=== PATIENT | female | born 1935 | race Caucasian/White ===

== ENCOUNTER 2016-08-30 11:35 | Inpatient (IN) | payer MEDICARE, OTHER ==
--- NOTE | 2016-08-30 11:43 | EDM.PDOC ---
ED HPI SEIZURE COMPLAINT - General Source of Information: Reports: Patient, EMS History Limitations: Reports: No limitations - History of Present Illness Timing/Duration: Reports: seconds: Event Occurred (Where): home Event (Witnessed/Unwitnessed): witnessed Location: Reports: other (no trauma) Quality: Reports: other (breath episode of unconsciousness) Severity: mild Context: Denies: recent ETOH, new/change in medications, missed med dose(s), illness, trauma, photo stimulation, activity/exercise Pre Event Symptom(s): Reports: no other symptoms Event Symptoms: Denies: incontinence, tongue biting, confusion, headaches, weakness, chest pain, cough, fever/chills, loss of appetite, malaise, nausea/ vomiting, shortness of breath Post Event Symptoms: Denies: confused, lethargic, headache, altered speech Associated Injuries: Reports: other (None stated) <Clay Ortega - Last Filed: 08/30/16 15:32> - General Source of Information: Reports: Patient, EMS History Limitations: Reports: No limitations <Jim Reardon - Last Filed: 08/30/16 19:25> - General Chief Complaint: Syncope Stated Complaint: [facility] Time Seen by Provider: 08/30/16 11:38 - History of Present Illness INITIAL COMMENTS - FREE TEXT/NARRATIVE: Patient is a 81-year-old female resident of [facility] who presents to the E.D. complaining of syncopal episode. Patient states she walked to the bathroom and once arriving to the toilet she became dizzy. Patient apparently passed out for a short period of time. She did not fall was sat back on the toilet to which her bearing came back quickly. She complained of only mild discomfort to her abdomen described as a crampy sensation. Consistent with needing to have a BM.Patient states she has issues with constipation. Per nursing staff patient alert and oriented upon arrival with questionable central cyanosis. Patient was placed on supplemental o2 via nc. Monitor revealed irregular/irregular rhythm with rate ranging in the 90-120's. Patient denies hitting her head, headache, dizziness, n/v, chest pain, shortness of breath, cough, fever/chills, recent weightgain, increased edema to legs, pain with urination, or any additional complaints. Patient has no complaints with admission to the E.D. She denies any history of TIA/Stroke. She did not fall or hit her head. Mouth is chronically dry. (Clay Ortega) 81-year-old female brought to the ED by [facility]. (Jim Reardon) - Related Data Allergies/ADRs: Allergies Allergy/AdvReac Type Severity Reaction Status Date / Time amiodarone Allergy Severe Anaphylactic Verified 08/30/16 11:37 Shock Penicillins Allergy Severe Hives Verified 08/30/16 11:37 Cephalosporins Allergy Cannot Verified 08/30/16 11:37 Remember Huxhycz-Usg-Ean Reductase Allergy Other Verified 08/30/16 11:37 Inhibitor Home Meds: Home Meds Cyclobenzaprine [Flexeril] 10 mg PO TID PRN 10/20/13 [History] Diltiazem [Cardizem CD] 240 mg PO DAILY 10/20/13 [History] Furosemide [Lasix] 40 mg PO DAILY 10/20/13 [History] Lisinopril [Zestril] 5 mg PO DAILY 10/20/13 [History] Metoprolol Succinate 50 mg PO DAILY 10/20/13 [History] Omeprazole [Prilosec] 20 mg PO DAILY PRN 10/20/13 [History] Potassium Chloride 20 meq PO BID 10/20/13 [History] Multivitamin [Multivitamins] 1 each PO DAILY 12/21/13 [History] Acetaminophen [Tylenol Extra Strength] 1,000 mg PO Q6HR PRN 12/28/14 [History] Levothyroxine [Synthroid] 100 mcg PO DAILY 06/20/15 [History] Warfarin Sodium [Jantoven] 4 mg PO SUTUTHSA 06/20/15 [History] Albuterol/Ipratropium [DuoNeb 3.0-0.5 MG/3 ML] 3 ml NEB ASDIRECTED PRN 08/02/16 [History] Atropine 1% [Isopto Atropine 1% Ophth Soln] 1 drop EYEBOTH DAILY PRN 08/02/16 [ History] Insulin Glarg,Human.Rec.Analog [Lantus Solostar] 28 units SUBCUT DAILY 08/02/16 [History] Insulin Lispro [Humalog Kwikpen U-100] 6 units SUBCUT BID 08/02/16 [History] Acetaminophen [Tylenol Extra Strength] 1,000 mg PO BID 08/30/16 [History] Albuterol [Proventil Neb Soln] 2.5 mg NEB Q6HRRT 08/30/16 [History] Cyanocobalamin (Vitamin B-12) [B-12] 5,000 mcg PO DAILY 08/30/16 [History] Docusate Sodium/Sennosides [Senna Plus] 2 tab PO DAILY 08/30/16 [History] Insulin Lispro [Humalog Kwikpen U-100] 4 units SQ DAILY 08/30/16 [History] Turmeric Root Extract [Turmeric] 500 mg PO DAILY 08/30/16 [History] Ubidecarenone [Co Q-10] 100 mg PO DAILY 08/30/16 [History] Warfarin [Coumadin] 2 mg PO MOWEFR 08/30/16 [History] Past Medical History HEENT History: Reports: Impaired vision, Other (see below) Other HEENT History: Wears correctivelenses, not with her. 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: Musculoskeletal History: Reports: Arthritis, Back pain, chronic Psychiatric History: Reports: Depression Endocrine/Metabolic History: Reports: Diabetes, type II, Obesity/BMI 30+ Hematologic History: Reports: Anticoagulation therapy - Infectious Disease History Infectious Disease History: Reports: Chicken pox, Measles, Pertussis (whooping cough) - Past Surgical History GI Surgical History: Reports: Cholecystectomy Dermatological Surgical History: Reports: None <Jim Reardon - Last Filed: 08/30/16 19:25> Social & Family History - Family History Family Medical History: Noncontributory OBGYN: Reports: Endocrine/Metabolic: Reports: Diabetes, type II Oncologic: Reports: Colon - Tobacco Use Smoking Status *Q: Never Smoker Used Tobacco, but Quit: No Second Hand Smoke Exposure: Yes - Caffeine Use Caffeine Use: Reports: None - Alcohol Use Days Per Week of Alcohol Use: 0 - Recreational Drug Use Recreational Drug Use: No - Living Situation & Occupation Living situation: Reports: single, alone (In her own home.) Occupation: retired <Jim Reardon - Last Filed: 08/30/16 19:25> ED ROS GENERAL - Review of Systems Review Of Systems: See Below Constitutional: Denies: fever, chills, malaise, weakness, decreased appetite HEENT: Denies: Vision change Respiratory: Denies: Shortness of Breath, Cough, Sputum Cardiovascular: Denies: Chest pain, Blood pressure problem, Dyspnea on exertion , Lightheadedness, Orthopnea, Palpitations, PND, Syncope GI/Abdominal: Reports: Abdominal pain (cramping), Constipation. Denies: Diarrhea, Flatus, Nausea, Vomiting : Denies: dysuria, flank pain, frequency, hematuria, urgency Musculoskeletal: Reports: back pain (mid thoracic, chronic, no new changes). Denies: neck pain, shoulder pain, arm pain Skin: Reports: no symptoms Neurological: Reports: Syncope, Difficulty Walking (utilizes walker,no changes) . Denies: Confusion, Dizziness, Headache, Numbness, Paresthesia, Pre-Existing Deficit, Seizure, Tingling, Trouble Speaking, Weakness, Gait Disturbance <Clay Ortega O - Last Filed: 08/30/16 15:32> - Physical Exam Exam: See Below Exam Limited By: No limitations General Appearance: alert, WD/WN, no apparent distress Eye Exam: bilateral eye: EOMI, PERRL Ears: hearing grossly normal Throat/Mouth: Normal inspection, Normal voice, No airway compromise, Other (dry oral mucosa) Head Exam: atraumatic, normocephalic Neck: normal inspection, supple, non-tender, full range of motion. No: lymphadenopathy (L), lymphadenopathy (R) Respiratory/Chest: no respiratory distress, lungs clear, normal breath sounds, no accessory muscle use, chest non-tender Cardiovascular: normal peripheral pulses, no edema, systolic murmur (3/6 right upper sternal border. ), irregularly irregular GI/Abdominal: normal bowel sounds, soft, no organomegaly, no distention, tender (mild tenderness to the lower abdomen, crampy, feels as if she needs to deficate ), other (Lab band button to the upper abdomen. ) Neuro Exam (Abbreviated): alert, oriented, CN II-XII intact, normal cognition, no motor/sensory deficits, other (Rhomberg in tact. No weakness to upper/lower extremities noted. no slurred speech. No facial droop. no pronator drift. ) Back Exam: normal inspection. No: CVA tenderness (L), CVA tenderness (R) Extremities: normal inspection, non-tender, no pedal edema, normal capillary refill Psychiatric: normal affect, normal mood Skin Exam: Warm, Dry, Intact, Normal color <Clay Ortega O - Last Filed: 08/30/16 15:32> Course <Clay Ortega O - Last Filed: 08/30/16 15:32> <Jim Reardon - Last Filed: 08/30/16 19:25> - Vital Signs Last Recorded V/S: Last Vital Signs Temp 36.3 C 08/30/16 16:51 Pulse 65 08/30/16 16:51 Resp 18 08/30/16 16:51 BP 113/72 08/30/16 16:51 Pulse Ox 95 08/30/16 16:51 Orthostatic Blood Pressure [ 100/55 Standing] Orthostatic Blood Pressure [ 114/82 Sitting] Orthostatic Blood Pressure [ 116/82 Supine] (Clay Ortega) - Orders/Labs/Meds Orders: Active Orders 24 hr Category Date Time Status EKG Documentation Completion [RC] STAT Care 08/30/16 11:38 Inactive Orthostatic Vital Signs [RC] ASDIRECTED Care 08/30/16 11:40 Active Sodium Chloride 0.9% [Normal Saline] 1,000 ml Med 08/30/16 11:45 Active IV ASDIRECTED Medication Orders Acetaminophen (Tylenol) 650 mg PO Q4H PRN PRN Reason: Pain (Mild 1-3)/fever Acetaminophen (Tylenol) 975 mg PO BID CELESTINO Acetaminophen/Hydrocodone Bitart ([place] 325-5 Mg) 1 tab PO Q4H PRN PRN Reason: Pain (moderate 4-6) Albuterol/Ipratropium (Duoneb 3.0-0.5 Mg/3 Ml) 3 ml NEB Q4H PRN PRN Reason: Shortness Of Breath/wheezing Atropine Sulfate (Isopto Atropine 1% Ophth Soln) 0 ml EYEBOTH DAILY PRN PRN Reason: Dryness Bisacodyl (Dulcolax) 5 mg PO DAILY PRN PRN Reason: Constipation Cyanocobalamin (Vitamin B12) 5,000 mcg PO DAILY CELESTINO Diltiazem HCl (Dilacor Xr) 240 mg PO DAILY CELESTINO Furosemide (Lasix) 40 mg PO DAILY CELESTINO Hydromorphone HCl (Dilaudid) 0.25 mg IVPUSH Q2H PRN PRN Reason: Pain (severe 7-10) Sodium Chloride (Normal Saline) 1,000 mls @ 150 mls/hr IV ASDIRECTED [facility] Last Admin: 08/30/16 12:26 Dose: 150 mls/hr Promethazine HCl 12.5 mg/ (Sodium Chloride) 50.5 mls @ 100 mls/hr IV Q6H PRN PRN Reason: Nausea/Vomiting Insulin Aspart (Novolog) 4 unit SUBCUT DAILY@1830 [facility] Last Admin: 08/30/16 19:08 Dose: 4 units Insulin Aspart (Novolog) 6 unit SUBCUT BID [facility] Insulin Detemir (Levemir) 14 unit SUBCUT BID [facility] Levothyroxine Sodium (Synthroid) 100 mcg PO WITHBREAKFAST [facility] Lisinopril (Prinivil) 5 mg PO DAILY [facility] Lorazepam (Ativan) 0.5 mg IV Q6H PRN PRN Reason: Anxiety Metoprolol Succinate (Toprol Xl) 50 mg PO DAILY [facility] Multivitamins (Thera) 1 each PO DAILY [facility] Ondansetron HCl (Zofran) 4 mg IV Q6H PRN PRN Reason: Nausea/Vomiting Pantoprazole Sodium (Protonix) 40 mg PO DAILY PRN PRN Reason: Indigestion Turmeric Root Extract [Turmeric] 500 Mg 0 each PO DAILY [facility] Ubidecarenone 100 Mg 0 each PO DAILY [facility] Polyethylene Glycol (Miralax) 17 gm PO DAILY PRN PRN Reason: Constipation Potassium Chloride (Klor-Con M20) 20 meq PO BID [facility] Senna/Docusate Sodium (Senna Plus) 1 tab PO BID PRN PRN Reason: Constipation Senna/Docusate Sodium (Senna Plus) 2 tab PO DAILY [facility] Temazepam (Restoril) 7.5 mg PO BEDTIME PRN PRN Reason: Sleep Warfarin Sodium (Coumadin) 2 mg PO MOWEFR [facility] Warfarin Sodium (Coumadin) 4 mg PO SUTUTHSA [facility] (Clay Ortega) Labs: Laboratory Tests 08/30/16 08/30/16 08/30/16 Range/Units 11:50 12:00 12:00 WBC 6.90 (3.98-10.04) K/mm3 RBC 4.72 (3.98-5.22) M/mm3 Hgb 14.0 (11.2-15.7) gm/L Hct 44.8 (34.1-44.9) % MCV 94.9 H (79.4-94.8) fl MCH 29.7 (25.6-32.2) pg MCHC 31.3 L (32.2-35.5) g/dl RDW Std Deviation 57.3 H (36.4-46.3) fL Plt Count 181 L (182-369) K/mm3 MPV 10.6 (9.4-12.3) fl Neutrophils % (Manual) 81 H (40-60) % Band Neutrophils % 1 (0-10) % Lymphocytes % (Manual) 12 L (20-40) % Atypical Lymphs % 0 % Monocytes % (Manual) 4 (2-10) % Eosinophils % (Manual) 1 (0.7-5.8) % Basophils % (Manual) 1 (0.1-1.2) Platelet Estimate Adequate RBC Morph Comment Normal PT (8.0-13.0) SECONDS INR D-Dimer, Quantitative (0.19-0.59) mg/L Sodium 139 (136-145) mEq/L Potassium 4.8 (3.5-5.1) mEq/L Chloride 102 (98-107) mEq/L Carbon Dioxide 28 (21-32) mEq/L Anion Gap 13.8 (5-15) BUN 22 H (7-18) mg/dL Creatinine 1.4 H (0.55-1.02) mg/dL Est Cr Clr Drug Dosing 29.50 mL/min Estimated GFR (MDRD) 36 (>60) mL/min BUN/Creatinine Ratio 15.7 (14-18) Glucose 217 H (83-115) mg/dL Calcium 8.8 (8.5-10.1) mg/dL Magnesium (1.8-2.4) mg/dl Total Bilirubin 1.4 H (0.2-1.0) mg/dL AST 30 (15-37) U/L ALT 23 (14-59) U/L Alkaline Phosphatase 93 (46-116) U/L CK-MB (CK-2) 1.5 (0-3.6) ng/ml Troponin I 0.039 (0.00-0.056) ng/mL B-Natriuretic Peptide 706 H (0-100) pg/mL Total Protein 7.6 (6.4-8.2) g/dl Albumin 3.0 L (3.4-5.0) g/dl Globulin 4.6 gm/dL Albumin/Globulin Ratio 0.7 L (1-2) Urine Color (Yellow) Urine Appearance (Clear) Urine pH (5.0-8.0) Ur Specific [place] (1.005-1.030) Urine Protein (Negative) Urine Glucose (UA) (Negative) Urine Ketones (Negative) Urine Occult Blood (Negative) Urine Nitrite (Negative) Urine Bilirubin (Negative) Urine Urobilinogen (0.2-1.0) Ur Leukocyte Esterase (Negative) Urine RBC (0-5) /hpf Urine WBC (0-5) /hpf Ur Squamous Epith Cells (0-5) /hpf Urine Bacteria (FEW) /hpf Urine Mucus (FEW) /hpf 08/30/16 08/30/16 08/30/16 Range/Units 12:00 12:00 12:00 WBC (3.98-10.04) K/mm3 RBC (3.98-5.22) M/mm3 Hgb (11.2-15.7) gm/L Hct (34.1-44.9) % MCV (79.4-94.8) fl MCH (25.6-32.2) pg MCHC (32.2-35.5) g/dl RDW Std Deviation (36.4-46.3) fL Plt Count (182-369) K/mm3 MPV (9.4-12.3) fl Neutrophils % (Manual) (40-60) % Band Neutrophils % (0-10) % Lymphocytes % (Manual) (20-40) % Atypical Lymphs % % Monocytes % (Manual) (2-10) % Eosinophils % (Manual) (0.7-5.8) % Basophils % (Manual) (0.1-1.2) Platelet Estimate RBC Morph Comment PT 37.6 H (8.0-13.0) SECONDS INR 3.20 D-Dimer, Quantitative 0.20 (0.19-0.59) mg/L Sodium (136-145) mEq/L Potassium (3.5-5.1) mEq/L Chloride (98-107) mEq/L Carbon Dioxide (21-32) mEq/L Anion Gap (5-15) BUN (7-18) mg/dL Creatinine (0.55-1.02) mg/dL Est Cr Clr Drug Dosing mL/min Estimated GFR (MDRD) (>60) mL/min BUN/Creatinine Ratio (14-18) Glucose (83-115) mg/dL Calcium (8.5-10.1) mg/dL Magnesium 2.2 (1.8-2.4) mg/dl Total Bilirubin (0.2-1.0) mg/dL AST (15-37) U/L ALT (14-59) U/L Alkaline Phosphatase (46-116) U/L CK-MB (CK-2) (0-3.6) ng/ml Troponin I (0.00-0.056) ng/mL B-Natriuretic Peptide (0-100) pg/mL Total Protein (6.4-8.2) g/dl Albumin (3.4-5.0) g/dl Globulin gm/dL Albumin/Globulin Ratio (1-2) Urine Color (Yellow) Urine Appearance (Clear) Urine pH (5.0-8.0) Ur Specific Cunningham (1.005-1.030) Urine Protein (Negative) Urine Glucose (UA) (Negative) Urine Ketones (Negative) Urine Occult Blood (Negative) Urine Nitrite (Negative) Urine Bilirubin (Negative) Urine Urobilinogen (0.2-1.0) Ur Leukocyte Esterase (Negative) Urine RBC (0-5) /hpf Urine WBC (0-5) /hpf Ur Squamous Epith Cells (0-5) /hpf Urine Bacteria (FEW) /hpf Urine Mucus (FEW) /hpf 08/30/16 08/30/16 Range/Units 14:43 14:50 WBC (3.98-10.04) K/mm3 RBC (3.98-5.22) M/mm3 Hgb (11.2-15.7) gm/L Hct (34.1-44.9) % MCV (79.4-94.8) fl MCH (25.6-32.2) pg MCHC (32.2-35.5) g/dl RDW Std Deviation (36.4-46.3) fL Plt Count (182-369) K/mm3 MPV (9.4-12.3) fl Neutrophils % (Manual) (40-60) % Band Neutrophils % (0-10) % Lymphocytes % (Manual) (20-40) % Atypical Lymphs % % Monocytes % (Manual) (2-10) % Eosinophils % (Manual) (0.7-5.8) % Basophils % (Manual) (0.1-1.2) Platelet Estimate RBC Morph Comment PT (8.0-13.0) SECONDS INR D-Dimer, Quantitative (0.19-0.59) mg/L Sodium (136-145) mEq/L Potassium (3.5-5.1) mEq/L Chloride (98-107) mEq/L Carbon Dioxide (21-32) mEq/L Anion Gap (5-15) BUN (7-18) mg/dL Creatinine (0.55-1.02) mg/dL Est Cr Clr Drug Dosing mL/min Estimated GFR (MDRD) (>60) mL/min BUN/Creatinine Ratio (14-18) Glucose (83-115) mg/dL Calcium (8.5-10.1) mg/dL Magnesium (1.8-2.4) mg/dl Total Bilirubin (0.2-1.0) mg/dL AST (15-37) U/L ALT (14-59) U/L Alkaline Phosphatase (46-116) U/L CK-MB (CK-2) (0-3.6) ng/ml Troponin I 0.136 H* (0.00-0.056) ng/mL B-Natriuretic Peptide (0-100) pg/mL Total Protein (6.4-8.2) g/dl Albumin (3.4-5.0) g/dl Globulin gm/dL Albumin/Globulin Ratio (1-2) Urine Color Yellow (Yellow) Urine Appearance Clear (Clear) Urine pH 6.5 (5.0-8.0) Ur Specific Cunningham 1.015 (1.005-1.030) Urine Protein Negative (Negative) Urine Glucose (UA) Negative (Negative) Urine Ketones Negative (Negative) Urine Occult Blood Negative (Negative) Urine Nitrite Negative (Negative) Urine Bilirubin Negative (Negative) Urine Urobilinogen 1.0 (0.2-1.0) Ur Leukocyte Esterase Negative (Negative) Urine RBC 0-5 (0-5) /hpf Urine WBC 0-5 (0-5) /hpf Ur Squamous Epith Cells 0-5 (0-5) /hpf Urine Bacteria Few (FEW) /hpf Urine Mucus Not seen (FEW) /hpf Meds: Medications Generic Name Dose Route Start Last Admin Trade Name Freq PRN Reason Stop Dose Admin Acetaminophen 650 mg 08/30/16 16:44 Tylenol PO Q4H PRN Pain (Mild 1-3)/fever Acetaminophen 975 mg 08/30/16 21:00 Tylenol PO BID [facility] Acetaminophen/Hydrocodone Bitart 1 tab 08/30/16 16:44 [place] 325-5 Mg PO Q4H PRN Pain (moderate 4-6) Albuterol/Ipratropium 3 ml 08/30/16 16:44 Duoneb 3.0-0.5 Mg/3 Ml NEB Q4H PRN Shortness Of Breath/wheezing Atropine Sulfate 0 ml 08/30/16 16:50 Isopto Atropine 1% Ophth Soln EYEBOTH DAILY PRN Dryness Bisacodyl 5 mg 08/30/16 16:44 Dulcolax PO DAILY PRN Constipation Cyanocobalamin 5,000 mcg 08/31/16 09:00 Vitamin B12 PO DAILY [facility] Diltiazem HCl 240 mg 08/31/16 09:00 Dilacor Xr PO DAILY [facility] Furosemide 40 mg 08/31/16 09:00 Lasix PO DAILY [facility] Hydromorphone HCl 0.25 mg 08/30/16 16:44 Dilaudid IVPUSH Q2H PRN Pain (severe 7-10) Sodium Chloride 1,000 mls @ 150 mls/hr 08/30/16 11:45 08/30/16 12:26 Normal Saline IV 150 mls/hr ASDIRECTED CELESTINO Administration Promethazine HCl 12.5 mg/ 50.5 mls @ 100 mls/hr 08/30/16 16:44 Sodium Chloride IV Q6H PRN Nausea/Vomiting Insulin Aspart 4 unit 08/30/16 18:30 08/30/16 19:08 Novolog SUBCUT 4 units DAILY@1830 [facility] Administration Insulin Aspart 6 unit 08/30/16 21:00 Novolog SUBCUT BID [facility] Insulin Detemir 14 unit 08/31/16 09:00 Levemir SUBCUT BID [facility] Levothyroxine Sodium 100 mcg 08/31/16 07:00 Synthroid PO WITHBREAKFAST [facility] Lisinopril 5 mg 08/31/16 09:00 Prinivil PO DAILY [facility] Lorazepam 0.5 mg 08/30/16 16:44 Ativan IV Q6H PRN Anxiety Metoprolol Succinate 50 mg 08/31/16 09:00 Toprol Xl PO DAILY [facility] Multivitamins 1 each 08/31/16 09:00 Thera PO DAILY [facility] Ondansetron HCl 4 mg 08/30/16 16:44 Zofran IV Q6H PRN Nausea/Vomiting Pantoprazole Sodium 40 mg 08/30/16 16:50 Protonix PO DAILY PRN Indigestion Turmeric Root 0 each 08/31/16 09:00 Extract [Turmeric] PO 500 Mg DAILY [facility] Ubidecarenone 100 Mg 0 each 08/31/16 09:00 PO DAILY [facility] Polyethylene Glycol 17 gm 08/30/16 16:44 Miralax PO DAILY PRN Constipation Potassium Chloride 20 meq 08/30/16 21:00 Klor-Con M20 PO BID [facility] Senna/Docusate Sodium 1 tab 08/30/16 16:44 Senna Plus PO BID PRN Constipation Senna/Docusate Sodium 2 tab 08/31/16 09:00 Senna Plus PO DAILY [facility] Temazepam 7.5 mg 08/30/16 16:44 Restoril PO BEDTIME PRN Sleep Warfarin Sodium 2 mg 08/31/16 18:00 Coumadin PO MOWEFR [facility] Warfarin Sodium 4 mg 09/01/16 18:00 [facility]in [facility] Discontinued Medications Generic Name Dose Route Start Last Admin Trade Name Freq PRN Reason Stop Dose Admin Albuterol/Ipratropium 3 ml 08/30/16 16:50 Duoneb 3.0-0.5 Mg/3 Ml NEB ASDIRECTED PRN Shortness of Breath Sodium Chloride 500 mls @ 250 mls/hr 08/30/16 12:54 08/30/16 16:52 Normal Saline IV 08/30/16 14:53 Not Given .BOLUS ONE Non-Formulary Medication 1,000 mg 08/30/16 16:50 Acetaminophen PO Q6HR PRN Pain (Clay Ortega) - Re-Assessments/Exams Free Text/Narrative Re-Assessment/Exam: Order peripheral IV with normal saline 150 mils per hour. Initial labs and studies include CBC, chem 14, troponin, CK-MB, UA, orthostatic vitals, EKG, chest x-ray, and BNP. 08/30/16 11:50 Rapid response was called while the patient was having radiology studies obtained. Patient was transferring from the hospital bed to the x-ray table and passed out for a short period of time. This was only for a few seconds. When patient awoke she was alert and oriented with no new complaints. She continues to complain of mild abdominal pain, described as hunger pains. Will obtain ultrasound of the aorta to ensure no aneurysm or dissection is present 08/30/16 12:57 sodium 139, potassium 4.8, BUN 22, creatinine 1.4, CK-MB 1.5, troponin 0.039, BNP 706, PT/INR 3.20, white blood cell count 6.90, hemoglobin 14 , platelets 181. CT the head without contrast was ordered. CXR revealed increased pulmonary vascular congestion/fibrosis and cardiomegaly. No acute findings present. X-ray of the abdomen noted increased stool pattern with no findings concerning for obstruction. Large stool ball within the rectal vault. CT of the head revealed: Nothing acute is identified a noncontrast CT study. 08/30/16 1350 Reassessment, patient is resting comfortably in bed with no complaints. Vitals are stable. Ultrasound of the aorta is currently underway. Abdominal aortic ultrasound impression: Aorta showed no aneurysmal dilatation. Ectatic right common iliac artery. 2nd troponin 0.136. I asked the patient if she would like to be transferred to a hospital in [place] for further evaluation by cardiology. Patient refused and would either be sent home or admitted here. UA was negative. 08/30/16 15:[address] Waggoner. He has accepted the patient. Patient meets inpatient admission criteria. Orthostatic vitals obtained: lying 116/82, HR 74, Sitting 114/82 HR 75, Standing 100/55 HR 88. Patient did very well with standing. Will order additional 250mls/hr. (Clay Ortega) Departure - Departure Time of Disposition: 15:32 <Clay Ortega - Last Filed: 08/30/16 15:32> <Jim Reardon - Last Filed: 08/30/16 19:25> - Departure Disposition: Admitted As Inpatient 66 Clinical Impression: Volume depletion, Elevated troponin, Aortic valve disease Atrial fibrillation Qualifiers: Atrial fibrillation type: chronic Qualified Code(s): I48.2 - Chronic atrial fibrillation Syncope Qualifiers: Syncope type: unspecified Qualified Code(s): R55 - Syncope and collapse
[2016-08-30] MEDS ORDERED: Sodium Chloride 0.9% 1,000 ML IV SCH (11:45)
[2016-08-30] MEDS ORDERED: Sodium Chloride 0.9% 500 ML IV ONE (12:54)
--- NOTE | 2016-08-30 13:14 | CT ---
Head CT Technique: Multiple axial sections through the brain were obtained. Intravenous contrast was not utilized. Comparison: Previous head CT exam of 12/04/13. Findings: Ventricles along with basal cisterns and sulci over the convexities are mildly prominent. Mild diminished density noted within the periventricular white matter compatible with small vessel ischemic demyelination change. 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 No other abnormal parenchymal densities are seen. No evidence of intracranial hemorrhage. No midline shift or mass effect is seen. Bone window settings were obtained which shows the visualized sinuses to appear clear. Mastoid sinuses and middle ear cavities are clear. Atherosclerotic calcifications seen within the vertebral vessels and carotid siphon. No acute calvarial abnormality is seen. Impression: 1. Senescent change as described above. Nothing acute is identified on noncontrast CT study. Diagnostic code #2
--- NOTE | 2016-08-30 13:55 | CR ---
Chest: Portable view of the chest was obtained. Comparison: Previous chest x-ray of 08/02/16. Heart size slightly enlarged. Mitral annulus calcification is noted. Bony structures are osteopenic. Degenerative endplate spurring noted within the spine with scoliosis. Lung markings are increased which appear to be fairly stable from prior exam. Impression: 1. Findings as noted above. No significant change from previous study. Diagnostic code #2
--- NOTE | 2016-08-30 13:55 | CR ---
Abdomen: Supine and upright views of the abdomen were obtained. Comparison: No previous abdominal x-ray, previous CT abdomen and pelvis exam dated 01/11/15 is available. Lap band is in place. Mild increased stool seen within portions of the colon. Bowel gas pattern is otherwise unremarkable. Surgical clips seen from prior cholecystectomy. Bony structures are osteopenic. Degenerative spurring noted within the spine with scattered disc space narrowing. Mild degenerative change is noted within the left hip. Extensive vascular calcification is noted. Impression: 1. Incidental findings as noted above. Diagnostic code #2
--- NOTE | 2016-08-30 15:13 | US ---
Abdominal aortic ultrasound: Multiple real-time images of the abdominal aorta were obtained. Technologist's note: Limited exam due to bowel gas Aorta shows no aneurysmal dilatation. Proximal aorta has an AP dimension of 2.0 cm, mid aorta has an AP dimension of 1.5 cm and distal aorta has an AP dimension of 1.6 cm. Right common iliac artery is ectatic at 2.0 cm, left common iliac artery measures 1.5 cm Impression: 1. Aorta shows no aneurysmal dilatation. 2. Ectatic right common iliac artery. Diagnostic code #2
--- NOTE | 2016-08-30 16:38 | PCM.HP ---
H&P History of Present Illness - General Date of Service: 08/30/16 Admit Problem/Dx: Admission Diagnosis/Problem Admission Diagnosis/Problem Syncope Source of Information: Patient, Family, Old records, Provider, RN notes reviewed History Limitations: Reports: No limitations - History of Present Illness Initial Comments - Free Text/Narative: This is an 81 yo elderly white female with past medical hx/o Impaired Vision and Hearing, HTN, HLD, Severe Mitral Annual Calcification, Chronic Hypoxia on 1- 2L NC PRN for SOB, OA/DJD, Chronic Back Pain, Depression, DM2, and Obesity who comes in with c/o syncopal episode that took place in the bathroom at [facility]. Patient was out for a short time and it was witnessed by house staff. Patient did not fall and suffered no trauma. She denies any prodromal symptoms. She reports abdominal discomfort and carries a hx/o chronic constipation. A review of ED notes show she had another episode while she was in radiology trying to get imaging studies Per [facility] staff, patient was found hypoxic with increased heart rater in the 130s with central cyanosis. Patient carries a hx/o Chronic Atrial Fibrillation on Warfarin and Severe Mitral Annular Calcification. He initial work up shows a fairly unremarkable CBC. Her INR is therapeutic at 3.20. Her chemistry is significant for BUN 22, Cr 1.4, BS 217, Total Bili 1.4, CKMB 1.5, Troponin 0.136 , BNP 706, and Albumin 3. UA shows no UTI. Her CXR and Head CT scan showed no acute abnormal findings. Patient was referred to me for work up of her Syncope. She is full code. - Related Data Allergies/Adverse Reactions: Allergies Allergy/AdvReac Type Severity Reaction Status Date / Time amiodarone Allergy Severe Anaphylactic Verified 08/30/16 11:37 Shock Penicillins Allergy Severe Hives Verified 08/30/16 11:37 Cephalosporins Allergy Cannot Verified 08/30/16 11:37 Remember Kpcystm-Oqk-Ghw Reductase Allergy Other Verified 08/30/16 11:37 Inhibitor Home Medications: Home Meds Cyclobenzaprine [Flexeril] 10 mg PO TID PRN 10/20/13 [History] Diltiazem [Cardizem CD] 240 mg PO DAILY 10/20/13 [History] Furosemide [Lasix] 40 mg PO DAILY 10/20/13 [History] Lisinopril [Zestril] 5 mg PO DAILY 10/20/13 [History] Metoprolol Succinate 50 mg PO DAILY 10/20/13 [History] Omeprazole [Prilosec] 20 mg PO DAILY PRN 10/20/13 [History] Potassium Chloride 20 meq PO BID 10/20/13 [History] Multivitamin [Multivitamins] 1 each PO DAILY 12/21/13 [History] Acetaminophen [Tylenol Extra Strength] 1,000 mg PO Q6HR PRN 12/28/14 [History] Levothyroxine [Synthroid] 100 mcg PO DAILY 06/20/15 [History] Warfarin Sodium [Jantoven] 4 mg PO SUTUTHSA 06/20/15 [History] Albuterol/Ipratropium [DuoNeb 3.0-0.5 MG/3 ML] 3 ml NEB ASDIRECTED PRN 08/02/16 [History] Atropine 1% [Isopto Atropine 1% Ophth Soln] 1 drop EYEBOTH DAILY PRN 08/02/16 [ History] Insulin Glarg,Human.Rec.Analog [Lantus Solostar] 28 units SUBCUT DAILY 08/02/16 [History] Insulin Lispro [Humalog Kwikpen U-100] 6 units SUBCUT BID 08/02/16 [History] Acetaminophen [Tylenol Extra Strength] 1,000 mg PO BID 08/30/16 [History] Albuterol [Proventil Neb Soln] 2.5 mg NEB Q6HRRT 08/30/16 [History] Cyanocobalamin (Vitamin B-12) [B-12] 5,000 mcg PO DAILY 08/30/16 [History] Docusate Sodium/Sennosides [Senna Plus] 2 tab PO DAILY 08/30/16 [History] Insulin Lispro [Humalog Kwikpen U-100] 4 units SQ DAILY 08/30/16 [History] Turmeric Root Extract [Turmeric] 500 mg PO DAILY 08/30/16 [History] Ubidecarenone [Co Q-10] 100 mg PO DAILY 08/30/16 [History] Warfarin [Coumadin] 2 mg PO MOWEFR 08/30/16 [History] Past Medical History HEENT History: Reports: Impaired vision, Other (see below) Other HEENT History: Wears correctivelenses, not with her. Cardiovascular History: Reports: Afib, High cholesterol, Hypertension [employer] History: Reports: Musculoskeletal History: Reports: Arthritis, Back pain, chronic Psychiatric History: Reports: Depression Endocrine/Metabolic History: Reports: Diabetes, type II, Obesity/BMI 30+ Hematologic History: Reports: Anticoagulation therapy - Infectious Disease History Infectious Disease History: Reports: Chicken pox, Measles, Pertussis (whooping cough) - Past Surgical History GI Surgical History: Reports: Cholecystectomy Dermatological Surgical History: Reports: None Social & Family History - Family History Family Medical History: Noncontributory OBGYN: Reports: Endocrine/Metabolic: Reports: Diabetes, type II Oncologic: Reports: Colon - Tobacco Use Smoking Status *Q: Never Smoker Used Tobacco, but Quit: No Second Hand Smoke Exposure: Yes - Caffeine Use Caffeine Use: Reports: None - Alcohol Use Days Per Week of Alcohol Use: 0 - Recreational Drug Use Recreational Drug Use: No - Living Situation & Occupation Living situation: Reports: single, alone (In her own home.) Occupation: retired H&P Review of Systems - Review of Systems: Review Of Systems: See Below () General: Denies: fever, chills, malaise, weakness, fatigue HEENT: Reports: no symptoms Pulmonary: Denies: Shortness of Breath, Cough Cardiovascular: Denies: chest pain, palpitations, dyspnea on exertion, orthopnea , PND, lightheadedness, syncope, blood pressure problem Gastrointestinal: Reports: Abdominal pain, Constipation. Denies: Diarrhea, Nausea, Vomiting Musculoskeletal: Reports: back pain Skin: Reports: no symptoms Psychiatric: Denies: depression, anxiety, hallucinations Neurological: Reports: Syncope, Difficulty Walking, Gait Disturbance. Denies: Confusion Hematologic/Lymphatic: Reports: no symptoms Immunologic: Reports: no symptoms Exam - Exam Exam: See Below - Vital Signs Vital Signs: Last Vital Signs Temp 36.9 C 08/30/16 11:38 Pulse 92 08/30/16 11:38 Resp 20 08/30/16 11:38 BP 122/55 L 08/30/16 11:38 Pulse Ox 91 L 08/30/16 11:38 Weight: 99.79 kg - Exam Quality Assessment: supplemental oxygen (3L NC) General: alert, cooperative, mild distress HEENT: Conjunctiva clear, EOMI, Hearing intact, Mucosa moist & pink, Nares patent, Normal nasal septum, Posterior pharynx clear, PERRLA Neck: supple, trachea midline, 2+ carotid pulse wo bruit Lungs: Clear to auscultation, Normal respiratory effort, Decreased breath sounds Cardiovascular: irregular rhythm, systolic murmur, other (irregular rate) Abdomen: tenderness. No: normal bowel sounds, organomegaly (mild) (Female) Exam: Deferred Rectal (Female) Exam: Deferred Back Exam: normal inspection, decreased range of motion Extremities: normal inspection, normal pulses. No: clubbing, cyanosis, calf tenderness, edema Peripheral Pulses: 2+: dorsalis pedis (L), dorsalis pedis (R) Skin: warm, dry, intact Neuro Extensive - Mental Status: oriented x3, normal cognition, memory intact Neuro Extensive - Motor, Sensory, Reflexes: CN II-XII intact Psychiatric: alert, normal affect, normal mood - Patient Data Result Diagrams: 08/30/16 12:00 08/30/16 12:00 *Q Meaningful Use (ADM) - VTE *Q VTE Criteria *Q: - Stroke *Q Stroke Criteria *Q: - AMI *Q AMI Criteria *Q: Problem List Initiated/Reviewed/Updated: Yes Orders Last 24hrs: Medication Orders Sodium Chloride (Normal Saline) 1,000 mls @ 150 mls/hr IV ASDIRECTED [facility] Last Admin: 08/30/16 12:26 Dose: 150 mls/hr Assessment/Plan Comment:: Assessment/Plan: Acute: Syncope - Possible Vaso-Vagal (She was in the bathroom and trying to defecate) - Risk factors: Chronic Atrial Fibrillation, Severe Mitral Annular Calcification, Borderline Hypotension - [facility]: BP 107/80 mmHg, HR 132 on 3L NC at 88% - Head CT scan: no acute abnormal findings - Patient had another episode while she was in radiology - Last 2D Echo 06/10/15: LVEF 55-60% and Severe Mitral Annular Calcification - Carotid U/S and 2D echo in AM - Abdominal U/S no Aortic Aneurysmal Dilatation Atrial Fibrillation with RVR - [facility] - She's 90-120s in ED - On Cardizem, BB and Warfarin for stroke prophylaxis Severe Mitral Annular Calcification - Likely causing blood flow obstruction - 2D echo in am Elevated Troponin Level - 2/2 Demand Ischemia from A-fib RVR - CKMB is normal Elevated BNP - 706 - I do not feel she in acute exacerbation - 2D echo in AM Abdominal Pain - U/S negative for aortic aneurysmal dilatation - AXR: Increased stool - Bowel Prep for constipation Chronic: Impaired Vision and Hearing HTN HLD 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
[2016-08-30] MEDS ORDERED: Promethazine 12.5 MG in Sodium Chloride 0.9% 50 ML IV PRN (16:44)
[2016-08-30] MEDS ORDERED: LORazepam 2 MG/ML MDV IV PRN (16:44)
[2016-08-30] MEDS ORDERED: Albuterol/Ipratropium 3.0-0.5 MG/3 ML Neb Soln NEB PRN ×2 (16:44→16:50)
[2016-08-30] MEDS ORDERED: Acetaminophen 325 MG Tab PO PRN (16:44)
[2016-08-30] MEDS ORDERED: HYDROmorphone 0.5 MG/0.5 ML Syringe IVPUSH PRN (16:44)
[2016-08-30] MEDS ORDERED: Ondansetron 4 MG/2 ML SDV IV PRN (16:44)
[2016-08-30] MEDS ORDERED: Bisacodyl 5 MG Tab PO PRN (16:44)
[2016-08-30] MEDS ORDERED: Temazepam 7.5 MG Cap PO PRN (16:44)
[2016-08-30] MEDS ORDERED: Acetaminophen/HYDROcodone 325-5 MG Tab PO PRN (16:44)
[2016-08-30] MEDS ORDERED: Atropine 1% Ophth Soln 5 ML Bottle EYEBOTH PRN (16:50)
[2016-08-30] MEDS ORDERED: Non-Formulary Medication 1 Each (Acetaminophen 1,000 MG) PO PRN (16:50)
[2016-08-30] MEDS ORDERED: Pantoprazole 40 MG Tab.CR PO PRN (16:50)
[2016-08-30] MEDS: Insulin Aspart 100 Units/ML 3 ML Pen SUBCUT SCH ×2 (19:08→20:42)
[2016-08-30] MEDS: Acetaminophen 325 MG Tab PO SCH (20:41)
[2016-08-30] MEDS: Potassium Chloride 20 MEQ Tab.ER PO SCH (20:41)
[2016-08-30] MEDS ORDERED: Bisacodyl 10 MG Supp RECTAL PRN (23:40)
[2016-08-30] MEDS ORDERED: Lactulose Soln 10 GM/15 ML 30 ML UD Cup PO PRN (23:41)
[2016-08-31] MEDS: Levothyroxine 100 MCG Tab PO SCH (06:23)
[2016-08-31] MEDS: Polyethylene Glycol 3350 Powder 17 GM Packet PO PRN (06:24)
[2016-08-31] MEDS: Cyanocobalamin (Vitamin B12) 1,000 MCG Tab PO SCH (08:00)
[2016-08-31] MEDS: Metoprolol Succinate 50 MG Tab.ER PO SCH (08:01)
[2016-08-31] MEDS: Multivitamins,Therapeutic Tab PO SCH (08:01)
[2016-08-31] MEDS: Diltiazem 240 MG Cap.ER PO SCH (08:01)
[2016-08-31] MEDS: Potassium Chloride 20 MEQ Tab.ER PO SCH ×2 (08:02→20:30)
[2016-08-31] MEDS: Lisinopril 5 MG Tab PO SCH (08:02)
[2016-08-31] MEDS: Acetaminophen 325 MG Tab PO SCH ×2 (08:02→20:30)
[2016-08-31] MEDS: Insulin Detemir 100 Units/ML 3 ML Pen SUBCUT SCH ×2 (08:03→20:34)
[2016-08-31] MEDS: Furosemide 40 MG Tab PO SCH (08:03)
[2016-08-31] MEDS: Insulin Aspart 100 Units/ML 3 ML Pen SUBCUT SCH ×3 (08:04→20:31)
[2016-08-31] MEDS: Turmeric Root Extract [Turmeric] 500 MG PO SCH (08:05)
[2016-08-31] MEDS ORDERED: Pneumococcal Polyvalent-23 Vaccine 0.5 ML SDV IM ONE (08:14)
--- NOTE | 2016-08-31 12:38 | PCM.PN ---
- General Info Date of Service: 08/31/16 Admission Dx/Problem (Free Text): Admission Diagnosis/Problem Admission Diagnosis/Problem Syncope Shellie is seen resting comfortably in bed. She has been intermittently confused per nursing reports. Patient denies c/o pain, discomfort, headache, racing heart beats or palpitations. PT worked with her this am, weakness reported. Heart rates and b/p have been stable. INR is therapeutic. Echo and carotid US done this morning, results pending. Functional Status: Reports: pain controlled, tolerating diet, ambulating, urinating. Denies: new symptoms - Review of Systems General: Reports: Weakness HEENT: Reports: no symptoms Pulmonary: Reports: no symptoms Cardiovascular: Reports: No Symptoms. Denies: Chest Pain, Palpitations Gastrointestinal: Reports: No symptoms Genitourinary: Reports: no symptoms Musculoskeletal: Reports: no symptoms Skin: Reports: no symptoms Neurological: Reports: No Symptoms Psychiatric: Reports: confusion - Patient Data Vitals - most recent: Last Vital Signs Temp 97.5 F 08/31/16 07:56 Pulse 100 08/31/16 08:01 Resp 18 08/31/16 07:56 BP 113/82 08/31/16 08:02 Pulse Ox 99 08/31/16 07:56 Weight - most recent: 218 lb 12.8 oz I&O - last 24 hours: Intake & Output 08/30/16 08/31/16 08/31/16 22:59 06:59 14:59 Intake Total 150 650 0 Balance 150 650 0 Lab Results last 24 hrs: Laboratory Results - last 24 hr 08/30/16 08/30/16 08/31/16 Range/Units 18:22 20:41 06:01 WBC 7.16 (3.98-10.04) K/mm3 RBC 4.34 (3.98-5.22) M/mm3 Hgb 12.8 (11.2-15.7) gm/L Hct 41.0 (34.1-44.9) % MCV 94.5 (79.4-94.8) fl MCH 29.5 (25.6-32.2) pg MCHC 31.2 L (32.2-35.5) g/dl RDW Std Deviation 56.5 H (36.4-46.3) fL Plt Count 178 L (182-369) K/mm3 MPV 10.8 (9.4-12.3) fl Neut % (Auto) 73.8 H (34.0-71.1) % Lymph % (Auto) 12.7 L (19.3-51.7) % [place] % (Auto) 10.2 (4.7-12.5) % Eos % (Auto) 2.8 (0.7-5.8) Baso % (Auto) 0.4 (0.1-1.2) % Neut # 5.28 (1.56-6.13) K/mm3 Lymph # 0.91 L (1.18-3.74) K/mm3 [place] # 0.73 H (0.24-0.36) K/mm3 Eos # 0.20 (0.04-0.36) K/mm3 Baso # 0.03 (0.01-0.08) K/mm3 PT (8.0-13.0) SECONDS INR Sodium (136-145) mEq/L Potassium (3.5-5.1) mEq/L Chloride (98-107) mEq/L Carbon Dioxide (21-32) mEq/L Anion Gap (5-15) BUN (7-18) mg/dL Creatinine (0.55-1.02) mg/dL Est Cr Clr Drug Dosing mL/min Estimated GFR (MDRD) (>60) mL/min BUN/Creatinine Ratio (14-18) Glucose (83-115) mg/dL POC Glucose 202 H 169 H (83-110) mg/dL Calcium (8.5-10.1) mg/dL Magnesium (1.8-2.4) mg/dl Troponin I (0.00-0.056) ng/mL TSH 3rd Generation (0.358-3.74) uIU/mL 08/31/16 08/31/16 08/31/16 Range/Units 06:01 06:01 06:01 WBC (3.98-10.04) K/mm3 RBC (3.98-5.22) M/mm3 Hgb (11.2-15.7) gm/L Hct (34.1-44.9) % MCV (79.4-94.8) fl MCH (25.6-32.2) pg MCHC (32.2-35.5) g/dl RDW Std Deviation (36.4-46.3) fL Plt Count (182-369) K/mm3 MPV (9.4-12.3) fl Neut % (Auto) (34.0-71.1) % Lymph % (Auto) (19.3-51.7) % [place] % (Auto) (4.7-12.5) % Eos % (Auto) (0.7-5.8) Baso % (Auto) (0.1-1.2) % Neut # (1.56-6.13) K/mm3 Lymph # (1.18-3.74) K/mm3 [place] # (0.24-0.36) K/mm3 Eos # (0.04-0.36) K/mm3 Baso # (0.01-0.08) K/mm3 PT 23.3 H (8.0-13.0) SECONDS INR 2.04 Sodium 139 (136-145) mEq/L Potassium 4.1 (3.5-5.1) mEq/L Chloride 104 (98-107) mEq/L Carbon Dioxide 28 (21-32) mEq/L Anion Gap 11.1 (5-15) BUN 24 H (7-18) mg/dL Creatinine 1.2 H (0.55-1.02) mg/dL Est Cr Clr Drug Dosing 37.09 mL/min Estimated GFR (MDRD) 43 (>60) mL/min BUN/Creatinine Ratio 20.0 H (14-18) Glucose 84 (83-115) mg/dL POC Glucose (83-110) mg/dL Calcium 8.6 (8.5-10.1) mg/dL Magnesium 2.2 (1.8-2.4) mg/dl Troponin I (0.00-0.056) ng/mL TSH 3rd Generation 3.667 (0.358-3.74) uIU/mL 08/31/16 08/31/16 Range/Units 06:01 07:58 WBC (3.98-10.04) K/mm3 RBC (3.98-5.22) M/mm3 Hgb (11.2-15.7) gm/L Hct (34.1-44.9) % MCV (79.4-94.8) fl MCH (25.6-32.2) pg MCHC (32.2-35.5) g/dl RDW Std Deviation (36.4-46.3) fL Plt Count (182-369) K/mm3 MPV (9.4-12.3) fl Neut % (Auto) (34.0-71.1) % Lymph % (Auto) (19.3-51.7) % [place] % (Auto) (4.7-12.5) % Eos % (Auto) (0.7-5.8) Baso % (Auto) (0.1-1.2) % Neut # (1.56-6.13) K/mm3 Lymph # (1.18-3.74) K/mm3 [place] # (0.24-0.36) K/mm3 Eos # (0.04-0.36) K/mm3 Baso # (0.01-0.08) K/mm3 PT (8.0-13.0) SECONDS INR Sodium (136-145) mEq/L Potassium (3.5-5.1) mEq/L Chloride (98-107) mEq/L Carbon Dioxide (21-32) mEq/L Anion Gap (5-15) BUN (7-18) mg/dL Creatinine (0.55-1.02) mg/dL Est Cr Clr Drug Dosing mL/min Estimated GFR (MDRD) (>60) mL/min BUN/Creatinine Ratio (14-18) Glucose (83-115) mg/dL POC Glucose 102 (83-110) mg/dL Calcium (8.5-10.1) mg/dL Magnesium (1.8-2.4) mg/dl Troponin I 0.127 H* (0.00-0.056) ng/mL TSH 3rd Generation (0.358-3.74) uIU/mL Med Orders - Current: Current Medications Acetaminophen (Tylenol) 650 mg PO Q4H PRN PRN Reason: Pain (Mild 1-3)/fever Acetaminophen (Tylenol) 975 mg PO BID [facility] Last Admin: 08/31/16 08:02 Dose: 975 mg Acetaminophen/Hydrocodone Bitart (Ruth 325-5 Mg) 1 tab PO Q4H PRN PRN Reason: Pain (moderate 4-6) Albuterol/Ipratropium (Duoneb 3.0-0.5 Mg/3 Ml) 3 ml NEB Q4H PRN PRN Reason: Shortness Of Breath/wheezing Atropine Sulfate (Isopto Atropine 1% Ophth Soln) 0 ml EYEBOTH DAILY PRN PRN Reason: Dryness Bisacodyl (Dulcolax) 5 mg PO DAILY PRN PRN Reason: Constipation Bisacodyl (Dulcolax) 10 mg RECTAL BID PRN PRN Reason: Constipation Cyanocobalamin (Vitamin B12) 5,000 mcg PO DAILY [facility] Last Admin: 08/31/16 08:00 Dose: 5,000 mcg Diltiazem HCl (Dilacor Xr) 240 mg PO DAILY [facility] Last Admin: 08/31/16 08:01 Dose: 240 mg Furosemide (Lasix) 40 mg PO DAILY [facility] Last Admin: 08/31/16 08:03 Dose: 40 mg Promethazine HCl 12.5 mg/ (Sodium Chloride) 50.5 mls @ 100 mls/hr IV Q6H PRN PRN Reason: Nausea/Vomiting Insulin Aspart (Novolog) 4 unit SUBCUT DAILY@1830 [facility] Last Admin: 08/30/16 19:08 Dose: 4 units Insulin Aspart (Novolog) 6 unit SUBCUT BID [facility] Last Admin: 08/31/16 08:04 Dose: 6 units Insulin Detemir (Levemir) 14 unit SUBCUT BID [facility] Last Admin: 08/31/16 08:03 Dose: 14 units Lactulose (Cephulac) 20 gm PO BID PRN PRN Reason: Constipation Levothyroxine Sodium (Synthroid) 100 mcg PO WITHBREAKFAST [facility] Last Admin: 08/31/16 06:23 Dose: 100 mcg Lisinopril (Prinivil) 5 mg PO DAILY [facility] Last Admin: 08/31/16 08:02 Dose: 5 mg Lorazepam (Ativan) 0.5 mg IV Q6H PRN PRN Reason: Anxiety Metoprolol Succinate (Toprol Xl) 50 mg PO DAILY [facility] Last Admin: 08/31/16 08:01 Dose: 50 mg Multivitamins (Thera) 1 each PO DAILY [facility] Last Admin: 08/31/16 08:01 Dose: 1 each Ondansetron HCl (Zofran) 4 mg IV Q6H PRN PRN Reason: Nausea/Vomiting Pantoprazole Sodium (Protonix) 40 mg PO DAILY PRN PRN Reason: Indigestion Turmeric Root Extract [Turmeric] 500 Mg 0 each PO DAILY [facility] Last Admin: 08/31/16 08:05 Dose: Not Given Ubidecarenone 100 Mg 0 each PO DAILY [facility] Last Admin: 08/31/16 08:06 Dose: Not Given Polyethylene Glycol (Miralax) 17 gm PO DAILY PRN PRN Reason: Constipation Last Admin: 08/31/16 06:24 Dose: 17 gm Potassium Chloride (Klor-Con M20) 20 meq PO BID [facility] Last Admin: 08/31/16 08:02 Dose: 20 meq Senna/Docusate Sodium (Senna Plus) 1 tab PO BID PRN PRN Reason: Constipation Last Admin: 08/31/16 06:23 Dose: 1 tab Senna/Docusate Sodium (Senna Plus) 2 tab PO DAILY [facility] Last Admin: 08/31/16 08:01 Dose: 2 tab Temazepam (Restoril) 7.5 mg PO BEDTIME PRN PRN Reason: Sleep Warfarin Sodium ([facility]in) [facility] Warfarin Sodium (Coumadin) 4 mg PO SUTUTHSA [facility] Discontinued Medications Albuterol/Ipratropium (Duoneb 3.0-0.5 Mg/3 Ml) 3 ml NEB ASDIRECTED PRN PRN Reason: Shortness of Breath Hydromorphone HCl (Dilaudid) 0.25 mg IVPUSH Q2H PRN PRN Reason: Pain (severe 7-10) Sodium Chloride (Normal Saline) 1,000 mls @ 150 mls/hr IV ASDIRECTED [facility] Last Admin: 08/30/16 12:26 Dose: 150 mls/hr Sodium Chloride (Normal Saline) 500 mls @ 250 mls/hr IV .BOLUS ONE Stop: 08/30/16 14:53 Last Admin: 08/30/16 16:52 Dose: Not Given Non-Formulary Medication (Acetaminophen) 1,000 mg PO Q6HR PRN PRN Reason: Pain Pneumococcal Polyvalent Vaccine (Pneumovax 23) 0.5 ml IM .ONCE ONE Stop: 08/31/16 08:15 - Exam Quality Assessment: DVT prophylaxis General: alert, cooperative, no acute distress, other (confused, intermittently) HEENT: Pupils equal, Pupils reactive, EOMI, Mucous membr. moist/pink Neck: supple Lungs: Clear to auscultation, Normal respiratory effort, Decreased breath sounds (to bases) Cardiovascular: Irregular Rhythm, Murmurs (grade 2 systolic) Abdomen: bowel sounds present, soft, no tenderness, no distension (Female) Exam: Deferred Extremities: no edema, no calf tenderness Peripheral Pulses: 1+: dorsalis pedis (L), dorsalis pedis (R) Skin: warm, dry, intact Neurological: normal speech, normal tone, strength equal bilateral, cranial nerves intact Psy/Mental Status: alert, normal affect, normal mood - Problem List & Annotations (1) Syncope SNOMED Code(s): 700552779 Code(s): R55 - SYNCOPE AND COLLAPSE Status: Acute Priority: High Current Visit: Yes Qualifiers: Syncope type: unspecified Qualified Code(s): R55 - Syncope and collapse (2) Atrial fibrillation SNOMED Code(s): 07270183 Code(s): I48.91 - UNSPECIFIED ATRIAL FIBRILLATION Status: Chronic Priority: High Current Visit: Yes Qualifiers: Atrial fibrillation type: chronic Qualified Code(s): I48.2 - Chronic atrial fibrillation (3) Aortic valve disease SNOMED Code(s): 2877258 Code(s): I35.9 - NONRHEUMATIC AORTIC VALVE DISORDER, UNSPECIFIED Status: Chronic Priority: High Current Visit: Yes (4) Elevated troponin SNOMED Code(s): 750228774, 953516499 Code(s): R74.8 - ABNORMAL LEVELS OF OTHER SERUM ENZYMES Status: Acute Priority: High Current Visit: Yes (5) Volume depletion SNOMED Code(s): 30923596 Code(s): E86.9 - VOLUME DEPLETION, UNSPECIFIED Status: Resolved Current Visit: Yes - Problem List Review Problem List Initiated/Reviewed/Updated: Yes - Plan Plan:: Assessment/Plan: Acute: Syncope - Possible Vaso-Vagal (She was in the bathroom and trying to defecate) - Risk factors: Chronic Atrial Fibrillation, Severe Mitral Annular Calcification, Borderline Hypotension - Vitals at the [facility]: BP 107/80 mmHg, HR 132 on 3L NC at 88% - Head CT scan: no acute abnormal findings - Patient had another episode while she was in radiology - Last 2D Echo 06/10/15: LVEF 55-60% and Severe Mitral Annular Calcification - Carotid U/S and 2D echo done this am; results pending - Abdominal U/S no Aortic Aneurysmal Dilatation Atrial Fibrillation with RVR-- rates 80-90's now - HR is 130s at the [facility] - She's 90-120s in ED - On Cardizem, BB and Warfarin for stroke prophylaxis -Repeat EKG this am with afib with rate 93bpm, essentially unchanged from in ED - INR therapeutic at 2.04 today Severe Mitral Annular Calcification - Likely causing blood flow obstruction - 2D echo results pending Elevated Troponin Level-- repeated this am and is down - 2/2 Demand Ischemia from A-fib RVR - CKMB is normal Elevated BNP - 706 - Do not feel she in acute exacerbation- clinically no s/s of CHF - 2D echo in AM Abdominal Pain-- resolved - U/S negative for aortic aneurysmal dilatation - AXR: Increased stool - Bowel Prep for constipation Chronic: Impaired Vision and Hearing HTN HLD 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 OA/DJD Constipation Chronic Back Pain Depression DM2 Obesity Plan: Admit to Med-Surg with Tele Routine AM Labs Resume Home Meds Will monitor BPs closely- have been stable since admission Bowel Prep PT/OT consult Fall Precautions SW/CM for d/c planning Code Status: DNR/DNI
[2016-08-31] MEDS ORDERED: Warfarin 2 MG Tab PO SCH (18:00)
[2016-09-01] MEDS: Levothyroxine 100 MCG Tab PO SCH (06:38)
--- NOTE | 2016-09-01 08:04 | US ---
Carotid ultrasound: Duplex and color flow imaging was obtained of the carotid arteries. Comparison: No previous carotid imaging. Diffuse plaque noted within the distal common carotid arteries as well as within the right carotid bulb and proximal right internal carotid artery. Plaque is a mixture of characteristics. Velocity measurements Right side: CCA has a peak systolic velocity is 0.49 m/s. ICA has a peak systolic velocity of 0.78 m/s and peak end-diastolic velocity of 0.18 m/s. ECA has a peak systolic velocity of 0.51 m/s. Vertebral artery has a peak systolic velocity of 0.61 m/s. ICA/CCA ratio is 1.6. Left side: CCA has a peak systolic velocity of 0.50 m/s. ICA has a peak systolic velocity of 1.06 m/s and peak end-diastolic velocity of 0.31 m/s. ECA has a peak systolic velocity of 1.10 m/s. Vertebral artery has a peak systolic velocity of 0.84 m/s. ICA/CCA ratio is 2.1. Impression: 1. Diffuse plaque. 2. Elevated internal carotid artery velocity on the left side causing elevated ratio. Findings are suspicious for stenosis in the range of 50-79%. If this clinically needs to be confirmed and patient's renal status is satisfactory, MR carotid angiogram could then be considered. Agree with preliminary report issued by [facility] (preliminary report generated on 08/31/16, 3:26 PM Central Time) Diagnostic code #3
[2016-09-01] MEDS: Diltiazem 240 MG Cap.ER PO SCH (09:16)
[2016-09-01] MEDS: Potassium Chloride 20 MEQ Tab.ER PO SCH ×2 (09:17→20:30)
[2016-09-01] MEDS: Multivitamins,Therapeutic Tab PO SCH (09:17)
[2016-09-01] MEDS: Lisinopril 5 MG Tab PO SCH ×2 (09:17→09:59)
[2016-09-01] MEDS: Metoprolol Succinate 50 MG Tab.ER PO SCH (09:17)
[2016-09-01] MEDS: Furosemide 40 MG Tab PO SCH ×2 (09:18→09:58)
[2016-09-01] MEDS: Acetaminophen 325 MG Tab PO SCH ×2 (09:18→20:29)
[2016-09-01] MEDS: Cyanocobalamin (Vitamin B12) 1,000 MCG Tab PO SCH (09:18)
[2016-09-01] MEDS: Insulin Aspart 100 Units/ML 3 ML Pen SUBCUT SCH ×3 (09:51→20:32)
[2016-09-01] MEDS: Insulin Detemir 100 Units/ML 3 ML Pen SUBCUT SCH ×2 (09:53→20:30)
[2016-09-01] MEDS: Turmeric Root Extract [Turmeric] 500 MG PO SCH (09:55)
[2016-09-01] MEDS: Polyethylene Glycol 3350 Powder 17 GM Packet PO PRN (12:34)
--- NOTE | 2016-09-01 15:21 | PCM.PN ---
- General Info Date of Service: 09/01/16 Admission Dx/Problem (Free Text): Admission Diagnosis/Problem Admission Diagnosis/Problem Syncope Shellie is seen resting comfortably in bed. She has been intermittently confused per nursing reports. She was quite confused and awake most of the night. This morning when I visit and examine her she is alert and orientated to year, month, place and location. She is not sure why she is in the hospital in [place]. She is quite feisty with her daughter this morning and by daughters report was confused this am, told daughter she was in [place] and they "have to leave soon for all of those appointments". Patient denies c/o pain, discomfort, headache, racing heart beats or palpitations. She denies dizziness when up to bathroom or up with therapy or with nursing. Functional Status: Reports: pain controlled, tolerating diet, ambulating, urinating. Denies: new symptoms - Review of Systems General: Reports: Weakness, Fatigue HEENT: Reports: no symptoms Pulmonary: Denies: shortness of breath, cough Cardiovascular: Denies: Chest Pain, Palpitations, Dyspnea on Exertion, Orthopnea , Lightheadedness Gastrointestinal: Reports: No symptoms Genitourinary: Reports: no symptoms Musculoskeletal: Reports: no symptoms Skin: Reports: no symptoms Neurological: Reports: Confusion. Denies: Dizziness, Headache, Trouble Speaking Psychiatric: Reports: confusion, mood lability - Patient Data Vitals - most recent: Last Vital Signs Temp 98.8 F 09/01/16 11:23 Pulse 89 09/01/16 11:23 Resp 16 09/01/16 11:23 BP 121/61 09/01/16 11:23 Pulse Ox 93 L 09/01/16 11:23 Weight - most recent: 217 lb 6.4 oz I&O - last 24 hours: Intake & Output 09/01/16 09/01/16 09/01/16 06:59 14:59 22:59 Intake Total 1290 240 Output Total 900 Balance 390 240 Lab Results last 24 hrs: Laboratory Results - last 24 hr 08/31/16 08/31/16 09/01/16 Range/Units 17:52 20:33 06:02 WBC 6.94 (3.98-10.04) K/mm3 RBC 4.45 (3.98-5.22) M/mm3 Hgb 13.3 (11.2-15.7) gm/L Hct 42.4 (34.1-44.9) % MCV 95.3 H (79.4-94.8) fl MCH 29.9 (25.6-32.2) pg MCHC 31.4 L (32.2-35.5) g/dl RDW Std Deviation 57.1 H (36.4-46.3) fL Plt Count 167 L (182-369) K/mm3 MPV 10.7 (9.4-12.3) fl Neut % (Auto) 76.3 H (34.0-71.1) % Lymph % (Auto) 10.5 L (19.3-51.7) % Bonner % (Auto) 9.5 (4.7-12.5) % Eos % (Auto) 3.0 (0.7-5.8) Baso % (Auto) 0.4 (0.1-1.2) % Neut # 5.29 (1.56-6.13) K/mm3 Lymph # 0.73 L (1.18-3.74) K/mm3 Bonner # 0.66 H (0.24-0.36) K/mm3 Eos # 0.21 (0.04-0.36) K/mm3 Baso # 0.03 (0.01-0.08) K/mm3 PT (8.0-13.0) SECONDS INR Sodium (136-145) mEq/L Potassium (3.5-5.1) mEq/L Chloride (98-107) mEq/L Carbon Dioxide (21-32) mEq/L Anion Gap (5-15) BUN (7-18) mg/dL Creatinine (0.55-1.02) mg/dL Est Cr Clr Drug Dosing mL/min Estimated GFR (MDRD) (>60) mL/min BUN/Creatinine Ratio (14-18) Glucose (83-115) mg/dL POC Glucose 207 H 148 H (83-110) mg/dL Calcium (8.5-10.1) mg/dL Magnesium (1.8-2.4) mg/dl 09/01/16 09/01/16 09/01/16 Range/Units 06:02 06:02 06:20 WBC (3.98-10.04) K/mm3 RBC (3.98-5.22) M/mm3 Hgb (11.2-15.7) gm/L Hct (34.1-44.9) % MCV (79.4-94.8) fl MCH (25.6-32.2) pg MCHC (32.2-35.5) g/dl RDW Std Deviation (36.4-46.3) fL Plt Count (182-369) K/mm3 MPV (9.4-12.3) fl Neut % (Auto) (34.0-71.1) % Lymph % (Auto) (19.3-51.7) % Bonner % (Auto) (4.7-12.5) % Eos % (Auto) (0.7-5.8) Baso % (Auto) (0.1-1.2) % Neut # (1.56-6.13) K/mm3 Lymph # (1.18-3.74) K/mm3 Bonner # (0.24-0.36) K/mm3 Eos # (0.04-0.36) K/mm3 Baso # (0.01-0.08) K/mm3 PT 18.7 H (8.0-13.0) SECONDS INR 1.66 Sodium 138 (136-145) mEq/L Potassium 4.5 (3.5-5.1) mEq/L Chloride 103 (98-107) mEq/L Carbon Dioxide 26 (21-32) mEq/L Anion Gap 13.5 (5-15) BUN 22 H (7-18) mg/dL Creatinine 1.2 H (0.55-1.02) mg/dL Est Cr Clr Drug Dosing 37.09 mL/min Estimated GFR (MDRD) 43 (>60) mL/min BUN/Creatinine Ratio 18.3 H (14-18) Glucose 115 (83-115) mg/dL POC Glucose 111 H (83-110) mg/dL Calcium 8.5 (8.5-10.1) mg/dL Magnesium 2.2 (1.8-2.4) mg/dl //17 Range/Units 11:37 WBC (3.98-10.04) K/mm3 RBC (3.98-5.22) M/mm3 Hgb (11.2-15.7) gm/L Hct (34.1-44.9) % MCV (79.4-94.8) fl MCH (25.6-32.2) pg MCHC (32.2-35.5) g/dl RDW Std Deviation (36.4-46.3) fL Plt Count (182-369) K/mm3 MPV (9.4-12.3) fl Neut % (Auto) (34.0-71.1) % Lymph % (Auto) (19.3-51.7) % Bonner % (Auto) (4.7-12.5) % Eos % (Auto) (0.7-5.8) Baso % (Auto) (0.1-1.2) % Neut # (1.56-6.13) K/mm3 Lymph # (1.18-3.74) K/mm3 Bonner # (0.24-0.36) K/mm3 Eos # (0.04-0.36) K/mm3 Baso # (0.01-0.08) K/mm3 PT (8.0-13.0) SECONDS INR Sodium (136-145) mEq/L Potassium (3.5-5.1) mEq/L Chloride (98-107) mEq/L Carbon Dioxide (21-32) mEq/L Anion Gap (5-15) BUN (7-18) mg/dL Creatinine (0.55-1.02) mg/dL Est Cr Clr Drug Dosing mL/min Estimated GFR (MDRD) (>60) mL/min BUN/Creatinine Ratio (14-18) Glucose (83-115) mg/dL POC Glucose 220 H (83-110) mg/dL Calcium (8.5-10.1) mg/dL Magnesium (1.8-2.4) mg/dl Kane Results last 24 hrs: Microbiology 08/30/16 19:11 MRSA Surveillance Culture - Final Nasal/Axilla/Groin NO MRSA ISOLATED Med Orders - Current: Current Medications Acetaminophen (Tylenol) 650 mg PO Q4H PRN PRN Reason: Pain (Mild 1-3)/fever Acetaminophen (Tylenol) 975 mg PO BID CELESTINO Last Admin: 09/01/16 09:18 Dose: 975 mg Acetaminophen/Hydrocodone Bitart (Havre 325-5 Mg) 1 tab PO Q4H PRN PRN Reason: Pain (moderate 4-6) Albuterol/Ipratropium (Duoneb 3.0-0.5 Mg/3 Ml) 3 ml NEB Q4H PRN PRN Reason: Shortness Of Breath/wheezing Atropine Sulfate (Isopto Atropine 1% Ophth Soln) 0 ml EYEBOTH DAILY PRN PRN Reason: Dryness Bisacodyl (Dulcolax) 5 mg PO DAILY PRN PRN Reason: Constipation Bisacodyl (Dulcolax) 10 mg RECTAL BID PRN PRN Reason: Constipation Cyanocobalamin (Vitamin B12) 5,000 mcg PO DAILY [facility] Last Admin: 09/01/16 09:18 Dose: 5,000 mcg Diltiazem HCl (Dilacor Xr) 240 mg PO DAILY [facility] Last Admin: 09/01/16 09:16 Dose: 240 mg Furosemide (Lasix) 40 mg PO DAILY [facility] Last Admin: 09/01/16 09:58 Dose: Not Given Promethazine HCl 12.5 mg/ (Sodium Chloride) 50.5 mls @ 100 mls/hr IV Q6H PRN PRN Reason: Nausea/Vomiting Insulin Aspart (Novolog) 4 unit SUBCUT DAILY@1830 [facility] Last Admin: 08/31/16 17:53 Dose: 4 units Insulin Aspart (Novolog) 6 unit SUBCUT BID [facility] Last Admin: 09/01/16 09:51 Dose: 6 units Insulin Detemir (Levemir) 14 unit SUBCUT BID [facility] Last Admin: 09/01/16 09:53 Dose: 14 units Lactulose (Cephulac) 20 gm PO BID PRN PRN Reason: Constipation Levothyroxine Sodium (Synthroid) 100 mcg PO WITHBREAKFAST [facility] Last Admin: 09/01/16 06:38 Dose: Not Given Lisinopril (Prinivil) 5 mg PO DAILY [facility] Last Admin: 09/01/16 09:59 Dose: Not Given Lorazepam (Ativan) 0.5 mg IV Q6H PRN PRN Reason: Anxiety Metoprolol Succinate (Toprol Xl) 50 mg PO DAILY [facility] Last Admin: 09/01/16 09:17 Dose: 50 mg Multivitamins (Thera) 1 each PO DAILY [facility] Last Admin: 09/01/16 09:17 Dose: 1 each Ondansetron HCl (Zofran) 4 mg IV Q6H PRN PRN Reason: Nausea/Vomiting Pantoprazole Sodium (Protonix) 40 mg PO DAILY PRN PRN Reason: Indigestion Turmeric Root Extract [Turmeric] 500 Mg 0 each PO DAILY [facility] Last Admin: 09/01/16 09:55 Dose: Not Given Ubidecarenone 100 Mg 0 each PO DAILY [facility] Last Admin: 09/01/16 09:56 Dose: Not Given Polyethylene Glycol (Miralax) 17 gm PO DAILY PRN PRN Reason: Constipation Last Admin: 09/01/16 12:34 Dose: 17 gm Potassium Chloride (Klor-Con M20) 20 meq PO BID [facility] Last Admin: 09/01/16 09:17 Dose: 20 meq Senna/Docusate Sodium (Senna Plus) 1 tab PO BID PRN PRN Reason: Constipation Last Admin: 08/31/16 06:23 Dose: 1 tab Senna/Docusate Sodium (Senna Plus) 2 tab PO DAILY [facility] Last Admin: 09/01/16 09:17 Dose: 2 tab Warfarin Sodium (Coumadin) 2 mg PO MOWEFR [facility] Last Admin: 08/31/16 17:53 Dose: 2 mg Warfarin Sodium (Coumadin) [facility]continued Medications Albuterol/Ipratropium (Duoneb 3.0-0.5 Mg/3 Ml) 3 ml NEB ASDIRECTED PRN PRN Reason: Shortness of Breath Hydromorphone HCl (Dilaudid) 0.25 mg IVPUSH Q2H PRN PRN Reason: Pain (severe 7-10) Sodium Chloride (Normal Saline) 1,000 mls @ 150 mls/hr IV ASDIRECTED [facility] Last Admin: 08/30/16 12:26 Dose: 150 mls/hr Sodium Chloride (Normal Saline) 500 mls @ 250 mls/hr IV .BOLUS ONE Stop: 08/30/16 14:53 Last Admin: 08/30/16 16:52 Dose: Not Given Non-Formulary Medication (Acetaminophen) 1,000 mg PO Q6HR PRN PRN Reason: Pain Pneumococcal Polyvalent Vaccine (Pneumovax 23) 0.5 ml IM .ONCE ONE Stop: 08/31/16 08:15 Temazepam (Restoril) 7.5 mg PO BEDTIME PRN PRN Reason: Sleep Last Admin: 09/01/16 00:43 Dose: 7.5 mg - Exam Quality Assessment: supplemental oxygen, DVT prophylaxis General: alert, cooperative, no acute distress HEENT: Pupils equal, Pupils reactive, EOMI, Mucous membr. moist/pink Neck: supple Lungs: Clear to auscultation, Normal respiratory effort, Decreased breath sounds (to bases) Cardiovascular: Irregular Rhythm, Murmurs (grade 2 systolic) Abdomen: bowel sounds present, soft, no tenderness, no distension (Female) Exam: Deferred Extremities: no edema, no calf tenderness Peripheral Pulses: 1+: dorsalis pedis (L), dorsalis pedis (R) Skin: warm, dry, intact Neurological: normal speech, normal tone, cranial nerves intact Psy/Mental Status: alert, agitated (at times when talking about confusion) - Problem List & Annotations (1) Syncope SNOMED Code(s): 209742609 Code(s): R55 - SYNCOPE AND COLLAPSE Status: Acute Priority: High Current Visit: Yes Qualifiers: Syncope type: unspecified Qualified Code(s): R55 - Syncope and collapse (2) Atrial fibrillation SNOMED Code(s): 37680765 Code(s): I48.91 - UNSPECIFIED ATRIAL FIBRILLATION Status: Chronic Priority: High Current Visit: Yes Qualifiers: Atrial fibrillation type: chronic Qualified Code(s): I48.2 - Chronic atrial fibrillation (3) Aortic valve disease SNOMED Code(s): 3254126 Code(s): I35.9 - NONRHEUMATIC AORTIC VALVE DISORDER, UNSPECIFIED Status: Chronic Priority: High Current Visit: Yes Annotation/Comment:: quantified by most recent Echocardiogram done on 08/31/16 as severe (4) Elevated troponin SNOMED Code(s): 162648017, 453206666 Code(s): R74.8 - ABNORMAL LEVELS OF OTHER SERUM ENZYMES Status: Resolved Priority: High Current Visit: Yes (5) Volume depletion SNOMED Code(s): 53985173 Code(s): E86.9 - VOLUME DEPLETION, UNSPECIFIED Status: Resolved Current Visit: Yes (6) ANDIE (obstructive sleep apnea) SNOMED Code(s): 78960365 Code(s): G47.33 - OBSTRUCTIVE SLEEP APNEA (ADULT) (PEDIATRIC) Status: Chronic Priority: High Current Visit: Yes Annotation/Comment:: untreated per patient choice- intolerant to masks - Problem List Review Problem List Initiated/Reviewed/Updated: Yes - My Orders Last 24 Hours: My Active Orders 09/01/16 06:02 Consult to Speech Language Pathology [[employer] Evaluation and Treatment] [CONS] Routine - Plan Plan:: Assessment/Plan: Acute: Syncope with intermittent confusion -Etiology: multifactorial -1) Severe aortic stenosis on echocardiogram obtained yesterday with EF of 40-45% -2) Chronic and untreated ANDIE - Head CT scan done in ER: no acute abnormal findings. -Attempts at MRI of brain today was unsuccessful due to patient kyphosis and uncomfortable with positioning along with claustrophobia- will not give patient sedative due to intermittent confusion - Abdominal U/S no Aortic Aneurysmal Dilatation - [employer] for cognitive eval today - HR stable in the 80-90's on telemetry; b/p's stable; blood sugars stable 90 -200's. Severe Aortic Stenosis on echocardiogram done yesterday. - Patient unwilling to see CV surgery to discuss options. - Contributing to and most likely etiology of multiple recurrent falls at home, confusion and syncope - EF 40-45% Atrial Fibrillation with RVR-- rates 80-90's now - HR is 130s at the [place] - She was 90-120s in ED - Has maintained 80-90's during her hospital stay - On Cardizem, BB and Warfarin for stroke prophylaxis - Repeat EKG with afib with rate 93bpm, essentially unchanged from in ED - INR therapeutic - cont Coumadin Elevated Troponin Level-- repeated this am and is down - 2/2 Demand Ischemia from A-fib RVR - CKMB is normal Elevated BNP - 706 initially in ED - Do not feel she in acute exacerbation- clinically no s/s of CHF - 2D echo with EF of 40-45% Abdominal Pain-- resolved - U/S negative for aortic aneurysmal dilatation - AXR: Increased stool - Bowel Prep for constipation Chronic: Impaired Vision and Hearing HTN- stable HLD 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 OA/DJD Constipation Chronic Back Pain Depression DM2- sugars stable Obesity Longstanding untreated ANDIE Plan: Admit to Med-Surg with Tele Routine AM Labs Resume Home Meds Will monitor BPs closely- have been stable since admission Bowel Prep PT/OT consult; [employer] for cognitive eval for confusion Fall Precautions SW/CM for d/c planning I had a long discussion >40 minutes with patient and daughter today regarding echocardiogram results, severe findings. Daughter is concerned about degree of confusion that is now being brought to light. Reviewed at length with daughter concern for untreated ANDIE and now severe, likely progressive as cause for syncope, recurrent falls for months, confusion- much worse at night. Patient is angry and gets aggitated easily with me today when I ask her about future treatment options and placement. Patient refuses consult with CV surgery to discuss valve issue (daughter states she decided no surgery long ago). Recommendations at this time are for discharge back to [facility] with close follow up and meeting with Dr. Gallo for his recommendations as he has been her PCP for years. Patient would like to go home with 24 hour care. Family is working on possibly arranging this. I am unsure this is the safest thing for her at this point as these issues are chronic and likely not going to improve or minimally improve; again, I have reviewed with daughter and patient that NH for further rehab with consideration of home with 24hour care at a later time is my recommendation. Patient "will think about it" and let me know; for now daughter agreeable to plan for dc back to [place] tomorrow. Discussed with SW and they will arrange for likely dc tomorrow with transport back to [place]. Code Status: DNR/DNI
[2016-09-01] MEDS ORDERED: Warfarin 4 MG Tab PO SCH (18:00)
--- NOTE | 2016-09-02 07:11 | PCM.DCSUM1 ---
Discharge Summary - Hospital Course Free Text/Narrative:: This is an 81 yo elderly white female with past medical hx/o Impaired Vision and Hearing, HTN, HLD, Severe Mitral Annual Calcification, Chronic Hypoxia on 1- 2L NC PRN for SOB, OA/DJD, Chronic Back Pain, Depression, DM2, and Obesity who comes in with c/o syncopal episode that took place in the bathroom at [facility]. Patient was out for a short time and it was witnessed by house staff. Patient did not fall and suffered no trauma. She denies any prodromal symptoms. She reports abdominal discomfort and carries a hx/o chronic constipation. A review of ED notes show she had another episode while she was in radiology trying to get imaging studies Per [facility] staff, patient was found hypoxic with increased heart rater in the 130s with central cyanosis. Patient carries a hx/o Chronic Atrial Fibrillation on Warfarin and Severe Mitral Annular Calcification. He initial work up shows a fairly unremarkable CBC. Her INR is therapeutic at 3.20. Her chemistry is significant for BUN 22, Cr 1.4, BS 217, Total Bili 1.4, CKMB 1.5, Troponin 0.136 , BNP 706, and Albumin 3. UA shows no UTI. Her CXR and Head CT scan showed no acute abnormal findings. Patient was referred to Hospitalist service for work up of her Syncope. She is full code. Patient was admitted, hydrated with IVF. Renal function improved/normalized. Repeat troponin was down. Heart rate improved with hydration. Repeat EKG the morning after admission was with afib rate of 93bpm. Carotid doppler was obtained showing moderate plaque bilaterally at 50-79% bilaterally. MRI of brain was attempted but due to patients kyphosis she was unable to lay comfortably and is quite claustrophobic so study was cancelled. She was intermittently confused and aggitated during her stay, specifically at night and early mornings. Echocardiogram was obtained with EF of 40-45%, severe aortic stenosis noted. She has had longstanding, untreated (by patient's choice/ noncompliance) ANDIE. Reviewed at length with patient and daughter that bouts of intermittent confusion may be related to combination of severe and untreated ANDIE. Patient has elected no CV intervention or consult (daughter states she decided that long ago). Heart rates have been stable in the 80's, b/p's stable 48 hours prior to discharge. Patient will be discharged back to ID today with close follow up with PCP, Dr. Gallo to discuss further tx for and ongoing confusion/syncope-near syncope symptoms, likely related to . She will have INR in 1 week with results sent to Dr. Gallo for his review. - Discharge Data Discharge Date: 09/02/16 (admit date 08/30/16) Discharge Disposition: DC/Tfer to [facility] Condition: Good - Discharge Diagnosis/Problem(s) (1) Syncope SNOMED Code(s): 400941802 ICD Code: R55 - SYNCOPE AND COLLAPSE Status: Acute Priority: High Qualifiers: Syncope type: unspecified Qualified Code(s): R55 - Syncope and collapse (2) Atrial fibrillation SNOMED Code(s): 29728343 ICD Code: I48.91 - UNSPECIFIED ATRIAL FIBRILLATION Status: Chronic Priority: High Qualifiers: Atrial fibrillation type: chronic Qualified Code(s): I48.2 - Chronic atrial fibrillation (3) Aortic valve disease SNOMED Code(s): 5035812 ICD Code: I35.9 - NONRHEUMATIC AORTIC VALVE DISORDER, UNSPECIFIED Status: Chronic Priority: High Problem Details: quantified by most recent Echocardiogram done on 08/31/16 as severe (4) Elevated troponin SNOMED Code(s): 809290052, 981471212 ICD Code: R74.8 - ABNORMAL LEVELS OF OTHER SERUM ENZYMES Status: Resolved Priority: High (5) Volume depletion SNOMED Code(s): 39040554 ICD Code: E86.9 - VOLUME DEPLETION, UNSPECIFIED Status: Resolved (6) ANDIE (obstructive sleep apnea) SNOMED Code(s): 90177901 ICD Code: G47.33 - OBSTRUCTIVE SLEEP APNEA (ADULT) (PEDIATRIC) Status: Chronic Priority: High Problem Details: untreated per patient choice- intolerant to masks - Patient Summary/Data Operative Procedure(s) Performed: None Complications: None Consults: Consultations 08/30/16 16:47 Consult to Case Management [CONS] Routine Consult to Engineering Technical Specialist [CONS] Routine Consult to Spiritual Care [CONS] Routine OT Evaluation and Treatment [CONS] Routine PT Evaluation and Treatment [CONS] Routine Respiratory Care Assess and Treatment [CONS] Routine 09/01/16 06:02 Consult to Speech Language Pathology [FIRE BEHAVIOR ANALYST Evaluation and Treatment] [CONS] Routine Labs Pending at D/C: None Recheck INR in 1 week from discharge; rx written with results to Dr Gallo Recommended Follow-up Testing/Procedures: Physical and occupational therapy to eval and treat Oxygen to keep sats greater than 90% Recheck INR in 1 week; results to Dr. Gallo Follow up with Dr. Gallo within 5-7 days of discharge; Discuss aortic valve disease and untreated sleep apnea as cause of intermittent confusion and plan of care with aortic valve disease progression. Planned Operative Procedure(s) after DC: None Hospital Course: As above - Patient Instructions Diet: Heart Healthy Diet, Low Sodium Activity: As Tolerated, No Strenuous Activities (rise slowly; position changes slowly; quick movements, valsalva or baring down may cause dizziness/ lightheadedness due to severe aortic valve disease) Driving: Do Not Drive Showering/Bathing: May Shower Notify Provider of: Fever, Increased Pain (chest pains, worsening shortness of breath, worsening of dizziness/lightheadedness) - Discharge Plan Prescriptions/Med Rec: Polyethylene Glycol 3350 [MiraLAX] 17 gm PO BEDTIME #30 packet Home Medications: Home Meds Diltiazem [Cardizem CD] 240 mg PO DAILY 10/20/13 [History] Furosemide [Lasix] 40 mg PO DAILY 10/20/13 [History] Lisinopril [Zestril] 5 mg PO DAILY 10/20/13 [History] Metoprolol Succinate 50 mg PO DAILY 10/20/13 [History] Omeprazole [Prilosec] 20 mg PO DAILY PRN 10/20/13 [History] Potassium Chloride 20 meq PO BID 10/20/13 [History] Multivitamin [Multivitamins] 1 each PO DAILY 12/21/13 [History] Acetaminophen [Tylenol Extra Strength] 1,000 mg PO Q6HR PRN 12/28/14 [History] Levothyroxine [Synthroid] 100 mcg PO DAILY 06/20/15 [History] Warfarin Sodium [Jantoven] 4 mg PO SUTUTHSA 06/20/15 [History] Albuterol/Ipratropium [DuoNeb 3.0-0.5 MG/3 ML] 3 ml NEB ASDIRECTED PRN 08/02/16 [History] Atropine 1% [Isopto Atropine 1% Ophth Soln] 1 drop EYEBOTH DAILY PRN 08/02/16 [ History] Insulin Glarg,Human.Rec.Analog [Lantus Solostar] 26 units SUBCUT DAILY 08/02/16 [History] Insulin Lispro [Humalog Kwikpen U-100] 6 units SUBCUT BID 08/02/16 [History] Acetaminophen [Tylenol Extra Strength] 1,000 mg PO BID 08/30/16 [History] Cyanocobalamin (Vitamin B-12) [B-12] 5,000 mcg PO DAILY 08/30/16 [History] Docusate Sodium/Sennosides [Senna Plus] 2 tab PO DAILY 08/30/16 [History] Insulin Lispro [Humalog Kwikpen U-100] 4 units SQ DAILY 08/30/16 [History] Turmeric Root Extract [Turmeric] 500 mg PO DAILY 08/30/16 [History] Ubidecarenone [Co Q-10] 100 mg PO DAILY 08/30/16 [History] Warfarin [Coumadin] 2 mg PO MOWEFR 08/30/16 [History] Bisacodyl [Dulcolax] 5 mg PO DAILY #0 tablet 09/02/16 [Rx] Polyethylene Glycol 3350 [MiraLAX] 17 gm PO BEDTIME #30 packet 09/02/16 [Rx] Patient Handouts: Heart-Healthy Eating Plan, [id number], Oxygen Use at Home, Syncope, [id number], Aortic Valve Stenosis, Sleep Apnea Referrals: Haroldo Gallo MD [Primary Care Provider] - - Discharge Summary/Plan Comment DC Time >30 min.: Yes (40 min) - General Info Date of Service: 09/02/16 Admission Dx/Problem (Free Text: Admission Diagnosis/Problem Admission Diagnosis/Problem Syncope Functional Status: Reports: pain controlled, tolerating diet, ambulating, urinating. Denies: new symptoms - Review of Systems General: Reports: Weakness HEENT: Reports: no symptoms Pulmonary: Reports: shortness of breath (chronic- at baseline) Cardiovascular: Denies: Chest Pain, Palpitations Gastrointestinal: Reports: No symptoms Genitourinary: Reports: no symptoms Musculoskeletal: Reports: no symptoms Skin: Reports: no symptoms Neurological: Reports: Confusion (intermittent; worse at night and early mornings) Psychiatric: Reports: confusion - Patient Data Vitals - Most Recent: Last Vital Signs Temp 97.9 F 09/02/16 05:07 Pulse 88 09/02/16 05:07 Resp 18 09/02/16 05:07 BP 128/61 09/02/16 05:07 Pulse Ox 96 09/02/16 05:07 Weight - Most Recent: 220 lb 3.2 oz I&O - Last 24 hours: Intake & Output 09/01/16 09/02/16 09/02/16 22:59 06:59 14:59 Intake Total 1280 540 Output Total 250 200 Balance 1030 340 Lab Results - Last 24 hrs: Laboratory Results - last 24 hr 09/01/16 09/01/16 09/01/16 Range/Units 06:02 06:02 11:37 PT 18.7 H (8.0-13.0) SECONDS INR 1.66 Sodium 138 (136-145) mEq/L Potassium 4.5 (3.5-5.1) mEq/L Chloride 103 (98-107) mEq/L Carbon Dioxide 26 (21-32) mEq/L Anion Gap 13.5 (5-15) BUN 22 H (7-18) mg/dL Creatinine 1.2 H (0.55-1.02) mg/dL Est Cr Clr Drug Dosing 37.09 mL/min Estimated GFR (MDRD) 43 (>60) mL/min BUN/Creatinine Ratio 18.3 H (14-18) Glucose 115 (83-115) mg/dL POC Glucose 220 H (83-110) mg/dL Calcium 8.5 (8.5-10.1) mg/dL Magnesium 2.2 (1.8-2.4) mg/dl 09/01/16 09/01/16 Range/Units 17:17 20:29 PT (8.0-13.0) SECONDS INR Sodium (136-145) mEq/L Potassium (3.5-5.1) mEq/L Chloride (98-107) mEq/L Carbon Dioxide (21-32) mEq/L Anion Gap (5-15) BUN (7-18) mg/dL Creatinine (0.55-1.02) mg/dL Est Cr Clr Drug Dosing mL/min Estimated GFR (MDRD) (>60) mL/min BUN/Creatinine Ratio (14-18) Glucose (83-115) mg/dL POC Glucose 172 H 169 H (83-110) mg/dL Calcium (8.5-10.1) mg/dL Magnesium (1.8-2.4) mg/dl JESÚS Results - Last 24 hrs: Microbiology 08/30/16 19:11 MRSA Surveillance Culture - Final Nasal/Axilla/Groin NO MRSA ISOLATED Med Orders - Current: Current Medications Acetaminophen (Tylenol) 650 mg PO Q4H PRN PRN Reason: Pain (Mild 1-3)/fever Acetaminophen (Tylenol) 975 mg PO BID [facility] Last Admin: 09/01/16 20:29 Dose: 975 mg Acetaminophen/Hydrocodone Bitart ([place] 325-5 Mg) 1 tab PO Q4H PRN PRN Reason: Pain (moderate 4-6) Albuterol/Ipratropium (Duoneb 3.0-0.5 Mg/3 Ml) 3 ml NEB Q4H PRN PRN Reason: Shortness Of Breath/wheezing Atropine Sulfate (Isopto Atropine 1% Ophth Soln) 0 ml EYEBOTH DAILY PRN PRN Reason: Dryness Bisacodyl (Dulcolax) 5 mg PO DAILY PRN PRN Reason: Constipation Bisacodyl (Dulcolax) 10 mg RECTAL BID PRN PRN Reason: Constipation Last Admin: 09/01/16 22:24 Dose: 10 mg Cyanocobalamin (Vitamin B12) 5,000 mcg PO DAILY [facility] Last Admin: 09/01/16 09:18 Dose: 5,000 mcg Diltiazem HCl (Dilacor Xr) 240 mg PO DAILY [facility] Last Admin: 09/01/16 09:16 Dose: 240 mg Furosemide (Lasix) 40 mg PO DAILY [facility] Last Admin: 09/01/16 09:58 Dose: Not Given Promethazine HCl 12.5 mg/ (Sodium Chloride) 50.5 mls @ 100 mls/hr IV Q6H PRN PRN Reason: Nausea/Vomiting Insulin Aspart (Novolog) 4 unit SUBCUT DAILY@1830 [facility] Last Admin: 09/01/16 18:24 Dose: 4 units Insulin Aspart (Novolog) 6 unit SUBCUT BID [facility] Last Admin: 09/01/16 20:32 Dose: 6 units Insulin Detemir (Levemir) 14 unit SUBCUT BID [facility] Last Admin: 03/16/17 20:30 Dose: 14 units Lactulose (Cephulac) 20 gm PO BID PRN PRN Reason: Constipation Levothyroxine Sodium (Synthroid) 100 mcg PO WITHBREAKFAST [facility] Last Admin: 09/01/16 06:38 Dose: Not Given Lisinopril (Prinivil) 5 mg PO DAILY [facility] Last Admin: 09/01/16 09:59 Dose: Not Given Lorazepam (Ativan) 0.5 mg IV Q6H PRN PRN Reason: Anxiety Metoprolol Succinate (Toprol Xl) 50 mg PO DAILY [facility] Last Admin: 09/01/16 09:17 Dose: 50 mg Multivitamins (Thera) 1 each PO DAILY [facility] Last Admin: 09/01/16 09:17 Dose: 1 each Ondansetron HCl (Zofran) 4 mg IV Q6H PRN PRN Reason: Nausea/Vomiting Pantoprazole Sodium (Protonix) 40 mg PO DAILY PRN PRN Reason: Indigestion Turmeric Root Extract [Turmeric] 500 Mg 0 each PO DAILY [facility] Last Admin: 09/01/16 09:55 Dose: Not Given Ubidecarenone 100 Mg 0 each PO DAILY [facility] Last Admin: 09/01/16 09:56 Dose: Not Given Polyethylene Glycol (Miralax) 17 gm PO DAILY PRN PRN Reason: Constipation Last Admin: 09/01/16 12:34 Dose: 17 gm Potassium Chloride (Klor-Con M20) 20 meq PO BID [facility] Last Admin: 09/01/16 20:30 Dose: 20 meq Senna/Docusate Sodium (Senna Plus) 1 tab PO BID PRN PRN Reason: Constipation Last Admin: 08/31/16 06:23 Dose: 1 tab Senna/Docusate Sodium (Senna Plus) 2 tab PO DAILY [facility] Last Admin: 09/01/16 09:17 Dose: 2 tab Warfarin Sodium (Coumadin) 2 mg PO MOWEFR [facility] Last Admin: 08/31/16 17:53 Dose: 2 mg Warfarin Sodium (Coumadin) 4 mg PO SUTUTHSA [facility] Last Admin: 09/01/16 18:23 Dose: 4 mg Discontinued Medications Albuterol/Ipratropium (Duoneb 3.0-0.5 Mg/3 Ml) 3 ml NEB ASDIRECTED PRN PRN Reason: Shortness of Breath Hydromorphone HCl (Dilaudid) 0.25 mg IVPUSH Q2H PRN PRN Reason: Pain (severe 7-10) Sodium Chloride (Normal Saline) 1,000 mls @ 150 mls/hr IV ASDIRECTED [facility] Last Admin: 08/30/16 12:26 Dose: 150 mls/hr Sodium Chloride (Normal Saline) 500 mls @ 250 mls/hr IV .BOLUS ONE Stop: 08/30/16 14:53 Last Admin: 08/30/16 16:52 Dose: Not Given Non-Formulary Medication (Acetaminophen) 1,000 mg PO Q6HR PRN PRN Reason: Pain Pneumococcal Polyvalent Vaccine (Pneumovax 23) 0.5 ml IM .ONCE ONE Stop: 08/31/16 08:15 Temazepam (Restoril) 7.5 mg PO BEDTIME PRN PRN Reason: Sleep Last Admin: 09/01/16 00:43 Dose: 7.5 mg - Exam Quality Assessment: Reports: supplemental oxygen, DVT prophylaxis General: Reports: alert, cooperative, no acute distress HEENT: Reports: Pupils equal, Pupils reactive, EOMI, Mucous membr. moist/pink Neck: Reports: supple Lungs: Reports: Normal respiratory effort, Decreased breath sounds Cardiovascular: Reports: Irregular Rhythm, Murmurs (grade 2 systolic) Abdomen: Reports: bowel sounds present, soft, no tenderness, no distension (Female) Exam: Deferred Rectal (Female) Exam: Deferred Back Exam: Reports: normal inspection Extremities: Reports: no calf tenderness, edema (minimal to ankles) Skin: Reports: warm, dry, intact Neurological: Reports: normal speech, normal tone, cranial nerves intact Psy/Mental Status: Reports: alert, normal affect, normal mood, agitated ( intermittently- associated with bouts of confusion) *Q Meaningful Use (DIS) - VTE *Q VTE Criteria *Q: - Stroke *Q Stroke Criteria *Q: - AMI *Q AMI Criteria *Q:
[2016-09-02 07:57] VITALS: BP 113/52
[2016-09-02] MEDS: Cyanocobalamin (Vitamin B12) 1,000 MCG Tab PO SCH (07:59)
[2016-09-02] MEDS: Levothyroxine 100 MCG Tab PO SCH (07:59)
[2016-09-02] MEDS: Lisinopril 5 MG Tab PO SCH (08:00)
[2016-09-02] MEDS: Potassium Chloride 20 MEQ Tab.ER PO SCH (08:00)
[2016-09-02] MEDS: Acetaminophen 325 MG Tab PO SCH (08:00)
[2016-09-02] MEDS: Furosemide 40 MG Tab PO SCH (08:00)
[2016-09-02] MEDS: Metoprolol Succinate 50 MG Tab.ER PO SCH (08:00)
[2016-09-02] MEDS: Multivitamins,Therapeutic Tab PO SCH (08:00)
[2016-09-02] MEDS: Insulin Detemir 100 Units/ML 3 ML Pen SUBCUT SCH (08:01)
[2016-09-02] MEDS: Diltiazem 240 MG Cap.ER PO SCH (08:01)
[2016-09-02] MEDS: Insulin Aspart 100 Units/ML 3 ML Pen SUBCUT SCH (08:02)
[2016-09-02] MEDS: Turmeric Root Extract [Turmeric] 500 MG PO SCH (08:02)
== END 2016-09-02 09:57 | DRG 312 ==
LOC: JD.ED 11:35 → SUPCPDRO 11:35 → JD.MS 15:31
PROVIDERS: ADMIT Internal Medicine; ATTEND Internal Medicine
DX: R55 Syncope and collapse (principal); R41.0 Disorientation, unspecified; E78.00 Pure hypercholesterolemia, unspecified; I95.9 Hypotension, unspecified; I48.2 Chronic atrial fibrillation; E86.9 Volume depletion, unspecified; H91.90 Unspecified hearing loss, unspecified ear; I10 Essential (primary) hypertension; E78.5 Hyperlipidemia, unspecified; M19.90 Unspecified osteoarthritis, unspecified site; G89.29 Other chronic pain; M54.9 Dorsalgia, unspecified; E11.9 Type 2 diabetes mellitus without complications; Z79.4 Long term (current) use of insulin; E66.9 Obesity, unspecified; Z68.30 Body mass index [BMI] 30.0-30.9, adult; F32.9 Major depressive disorder, single episode, unspecified; Z79.01 Long term (current) use of anticoagulants; Z79.899 Other long term (current) drug therapy; Z88.0 Allergy status to penicillin; Z88.8 Allergy status to other drugs, medicaments and biological substances; I34.8 Other nonrheumatic mitral valve disorders; R79.89 Other specified abnormal findings of blood chemistry; I50.9 Heart failure, unspecified; R09.02 Hypoxemia; K59.00 Constipation, unspecified; I35.9 Nonrheumatic aortic valve disorder, unspecified; Z91.81 History of falling; Z66 Do not resuscitate; G47.33 Obstructive sleep apnea (adult) (pediatric); Z23 Encounter for immunization
CPT/HCPCS: 36415; 70450; 71010; 74020; 76770; 80053; 81001; 82553; 83735; 83880; 84484 ×2; 85025; 85379; 85610; 93005; 99285; J7040; 80048; 82962; 84443; 90732; 93306; 93880; 93880-26; 94760; 96125-GN; 97110-GP; 97116-GP; 97161-GP; 97165-GO; 97530-GP; 97535-GO; 99222; 99232; A9270-GY; G0009; J1815-GY

== ENCOUNTER 2017-04-13 02:20 | Inpatient (IN) | payer MEDICARE, OTHER ==
[2017-04-13] MEDS ORDERED: Ondansetron 4 MG/2 ML SDV IVPUSH ONE (02:30)
[2017-04-13] MEDS ORDERED: HYDROmorphone 0.5 MG/0.5 ML Syringe IVPUSH ONE (02:30)
--- NOTE | 2017-04-13 02:35 | EDM.PDOC ---
ED HPI GENERAL MEDICAL PROBLEM - General Chief Complaint: Abdominal Pain Stated Complaint: [facility] Time Seen by Provider: 04/13/17 02:20 Source of Information: Reports: Patient, [facility] Records History Limitations: Reports: No Limitations - History of Present Illness INITIAL COMMENTS - FREE TEXT/NARRATIVE: 81-year-old female presents to the ED per ambulance from local longterm. Chief complaint of severe abdominal pain primarily left upper quadrant. Pain is been going on for 2-1/2 days. Associated nausea without any vomiting. She's had very limited oral intake for 2 days. She passes very little flatus if any the last 8 hours. Abdomen is grossly distended. She states the pain is constant with occasional strong colicky component. Previous abdominal surgery is that a gastric sleeve procedure many years ago. Previous cholecystectomy. States her bowels have not moved for about 4 days. She had a CT scan of her abdomen performed without any contrast yesterday at [facility] but the results are not known to her. She states the pain does radiate slightly through to her mid back. She is currently on Coumadin due to his severe suggest congestive heart failure and valvular heart disease. Feels more short of wind because her abdomen is so distended she is unable to take a deep breath. She is on oxygen all the time at 2 L/m by nasal cannula. Onset: Gradual Onset Date: 04/10/17 Duration: Day(s):, Getting Worse Location: Reports: Abdomen Quality: Reports: Sharp, Stabbing, Other (Constant pain primarily left upper quadrant with intermittent colicky component) Severity: Moderate (Rates pain as 7-8 out of 10.) Improves with: Reports: None Worsens with: Reports: Eating Context: Denies: Activity, Exercise, Lifting, Sick Contact, Trauma, Other Associated Symptoms: Reports: Loss of Appetite, Malaise, Nausea/Vomiting, Shortness of Breath, Weakness (Nausea without any vomiting. Lysed.). Denies: Chest Pain, Cough, cough w sputum, Diaphoresis, Fever/Chills, Headaches, Seizure , Syncope Treatments GRINDER HAND: Reports: Other (see below) (None.) Left Abdomen Pain Score (Numeric/FACES): 8 - Related Data Allergies Allergy/AdvReac Type Severity Reaction Status Date / Time amiodarone Allergy Cannot Verified 04/13/17 02:40 Remember Cephalosporins Allergy Cannot Verified 04/13/17 02:40 Remember Penicillins Allergy Cannot Verified 04/13/17 02:40 Remember Itdadjv-Ipi-Wee Reductase Allergy Cannot Verified 04/13/17 02:40 Inhibitor Remember Home Meds: Home Meds Acetaminophen [Tylenol Extra Strength] 500 mg PO DAILY PRN 04/13/17 [History] Acetaminophen [Tylenol Extra Strength] 500 mg PO TID 04/13/17 [History] Ammonia Solution, Strong/MSM [Penetran + Plus 1.5%] 1 gm TP BID PRN 04/13/17 [ History] Aspirin [Low Dose Aspirin EC] 81 mg PO DAILY 04/13/17 [History] Bisacodyl [Dulcolax] 5 mg PO DAILY 04/13/17 [History] Diltiazem [Cardizem CD] 240 mg PO DAILY 04/13/17 [History] Furosemide [Lasix] 80 mg PO BID 04/13/17 [History] Insulin Glarg,Human.Rec.Analog [LantUS Solostar] 36 units SUBCUT DAILY 04/13/17 [History] Insulin Lispro [Humalog] 0 unit SQ BID PRN 04/13/17 [History] Ipratropium/Albuterol Sulfate [Iprat-Albut 0.5-3(2.5) mg/3 ml] 3 ml NEB QID PRN 04/13/17 [History] Levothyroxine [Synthroid] 100 mcg PO ACBREAKFAST 04/13/17 [History] Lisinopril 5 mg PO DAILY 04/13/17 [History] Melatonin 5 mg PO BEDTIME 04/13/17 [History] Metoprolol Succinate [Toprol XL] 50 mg PO DAILY 04/13/17 [History] Multivitamin with Minerals [Multivitamins with Minerals] 1 tab PO DAILY [History] Polyethylene Glycol 3350 [MiraLAX] 17 gm PO BID PRN 04/13/17 [History] Polyvinyl Alcohol/Povidone/Pf [Refresh Classic Eye Drops] 1 drop EYEBOTH BID PRN 04/13/17 [History] Polyvinyl Alcohol/Povidone/Pf [Refresh Classic Eye Drops] 1 drop EYEBOTH QID [History] Potassium Chloride [Klor-Con M20] 20 meq PO BID 04/13/17 [History] Sennosides/Docusate Sodium [Senna-S] 2 each PO DAILY 04/13/17 [History] Sennosides/Docusate Sodium [Senna-S] 2 tab PO DAILY PRN 04/13/17 [History] Ubidecarenone [Co Q-10] 100 mg PO DAILY 04/13/17 [History] Warfarin Sodium [Coumadin] 4 mg PO SUTUTHSA 04/13/17 [History] Warfarin [Coumadin] 2 mg PO MOWEFR 04/13/17 [History] tiZANidine HCl [Zanaflex] 2 mg PO BEDTIME 04/13/17 [History] traMADol [Ultram] 50 mg PO TID PRN 04/13/17 [History] Past Medical History Cardiovascular History: Reports: Heart Failure, Heart Valve Replacement, Hypertension, [place] Respiratory History: Reports: COPD (Is oxygen dependent at 2 L/m.), Pulmonary Fibrosis (With right-sided heart failure and pulmonary hypertension.) Gastrointestinal History: Reports: Cholelithiasis (Has had her gallbladder removed.), Other (See Below) (Gastric sleeve procedure performed many years ago for obesity.) Genitourinary History: Reports: Chronic Renal Insuffiency Musculoskeletal History: Reports: Back Pain, Chronic, Osteoarthritis, Osteoporosis Social & Family History - Tobacco Use Smoking Status *Q: Never Smoker - Caffeine Use Caffeine Use: Reports: None - Recreational Drug Use Recreational Drug Use: No - Living Situation & Occupation Living situation: Reports: Extended Care Facility (Since 2016) Occupation: Retired ED ROS GENERAL - Review of Systems Review Of Systems: See Below Constitutional: Reports: Malaise, Weakness, Fatigue, Decreased Appetite. Denies : Fever, Chills HEENT: Reports: Glasses, Other. Denies: Hearing Loss Respiratory: Reports: Shortness of Breath (Very dry mouth.), Cough. Denies: Wheezing, Pleuritic Chest Pain, Sputum (Nonproductive), Hemoptysis Cardiovascular: Reports: Blood Pressure Problem, Dyspnea on Exertion (. chronically ), Edema (Chronically in her lower extremities up to the thighs), Orthopnea. Denies: Chest Pain, Claudication (Usually runs too low.), Lightheadedness, Palpitations Endocrine: Reports: Fatigue GI/Abdominal: Reports: Abdominal Pain, Anorexia, Constipation, Decreased Appetite (See history of present illness), Nausea. Denies: Diarrhea, Flatus, Vomiting : Reports: Frequency, Incontinence (Due to being on diuretics. Both stress and urgency components) Musculoskeletal: Reports: Back Pain, Joint Pain (Knees hips and shoulders at times.) Skin: Reports: Bruising (Bruises very easily due to being on Coumadin. Particularly abdominal wall.) Neurological: Reports: No Symptoms, Difficulty Walking (Chronically), Gait Disturbance Psychiatric: Reports: No Symptoms Hematologic/Lymphatic: Reports: Easy Bleeding Immunologic: Reports: No Symptoms ED EXAM, GI/ABD - Physical Exam Exam: See Below Exam Limited By: No Limitations General Appearance: Alert, WD/WN, Mild Distress Eyes: Bilateral: Pale Conjunctiva (Mild bilaterally.) Throat/Mouth: Other (Tongue is very dry and beefy red and shriveled up.) Head: Atraumatic, Normocephalic Neck: Normal Inspection, Tender Lateral. No: Supple, Full Range of Motion ( Bilaterally. Decreased extension and flexion of the neck as well as lateral rotation due to arthritic changes. I crepitus palpable.), Carotid Bruit, Lymphadenopathy (L), Lymphadenopathy (R) Respiratory/Chest: Lungs Clear, Respiratory Distress (Mild tachypnea at rest. She is on oxygen at 2 L/m by nasal prongs.), Decreased Breath Sounds (Decreased breath sounds to both lower lung flores). No: Rales, Rhonchi, Wheezing Cardiovascular: Regular Rate, Rhythm, No Gallop, No JVD, No Rub. No: Normal Peripheral Pulses, No Edema GI/Abdominal Exam: Distended (Absence of any bowel sounds. He is slightly tympanitic to percussion.), Abnormal Bowel Sounds, Other (Abdominal wall is covered with multiple ecchymoses. She is most tender over her gastric port suggesting that she perhaps has had a LAP-BAND procedure versus a gastric sleeve.). No: Guarding, Rigid, Rebound Back Exam: Normal Inspection, Vertebral Tenderness (Throughout the lumbar spine) . No: Full Range of Motion, CVA Tenderness (L), CVA Tenderness (R) Extremities: Pedal Edema (4+ pitting edema above the knees bilaterally.), Other (No pulses are palpable in the lower extremities due to the edema.) Neurological: Alert, Oriented, CN II-XII Intact, Normal Cognition. No: Normal Gait Psychiatric: Normal Affect, Normal Mood Skin Exam: Warm, Dry, Intact, Pallor (Mild pallor), Other (Multiple ecchymoses abdominal wall at sites of injections.) EKG INTERPRETATION EKG Date: 04/13/17 Time: 14:45 Rhythm: A-Flutter (With predominant 4-1 AV block) Rate (Beats/Min): 82 [place]: RAD-Right [place] Deviation P-Wave: Variable QRS: Other (Right bundle branch block with a left posterior fascicular block as well. Decreased voltage throughout the precordial leads.) ST-T: Other (T-wave inversion in II, III, and F aVF nonspecific but cannot rule out ischemia.) QT: Prolonged (Mildly prolonged) EKG Interpretation Comments: Abnormal ECG Course - Vital Signs Last Recorded V/S: Last Vital Signs Temp 36.0 C 04/13/17 02:25 Pulse 89 04/13/17 02:25 Resp 19 04/13/17 02:25 BP 125/106 H 04/13/17 02:25 Pulse Ox 96 04/13/17 02:25 - Radiology Interpretation Free Text/Narrative:: 81-year-old female presents to the ED per ambulance from local longterm due to complaints of severe left upper quadrant abdominal pain. Pain is been going on for 2 and half days. She's been unable to eat or drink. She is nauseated. She 's not had a bowel movement and does not believe she is passing any flatus for the last day or so. Still passing her water. Has been taking her medications with a sip of water. By history she has COPD and is chronically oxygen dependent at 2 L/m by nasal prongs. History of high merrily right-sided heart failure with marked edema of the lower extremities up past the knees bilaterally. The skin is not breaking down on her legs. No ulcerations are present in the lower extremities. The abdomen is grossly distended and tympanitic to percussion without any bowel sounds. This suggests bowel obstruction. Plan :1 view chest x-ray one view abdomen. Routine labs include magnesium BNP and serum lipase levels. Lactic acid will also be done due to possible necrosis of bowel. She is afebrile and cool to touch. IV will be started at 100 mils per hour due to congestive heart failure although it's primarily right-sided failure on examination and she appears volume depleted. We 'll try and obtain CT scan and records from [facility] that were performed apparently yesterday. CT was done without contrast. Given Dilaudid 0.5 mg IV and Zofran 4 mg IV for nausea and pain relief. - Re-Assessments/Exams Free Text/Narrative Re-Assessment/Exam: 04/13/17 02:55 Reviewed labs obtained from [facility] through [facility]. He identified significant renal insufficiency with a BUN of 101. She is hyperkalemic with a potassium of 6.4. Mildly hyponatremic with a sodium of 131. Creatinine is 2.60. Bilirubin elevated at 2.5 with normal transaminases. White count normal at 7.7 with hemoglobin of 13.0. She was super therapeutically anticoagulated. PT was 49.7 with an INR of 4.34. It's unclear whether adjustments to her Coumadin dosage were made. CT of the abdomen reveals cirrhotic appearing liver with diffuse ascites which is a new change compared to CT done on July of this year. Kidneys were noted to be atrophic as well as the pancreas. Numerous diverticula were present without any evidence of active diverticulitis. A chest x-ray revealed patchy and reticular opacities throughout both lungs characteristic of him and early fibrosis. No pneumothorax or pleural effusions were identified marked cardiomegaly and noted with diffuse increased pulmonary vascularity. I'm going to see if we can get the CT films pushed to us so that I can visualize them. 04/13/17 03:03 I did review the CT scan that was performed at [place] as was pushed to us. It does reveal diffuse marked ascites of the abdomen with small cirrhotic liver and small spleen. There is suggestion of portal hypertension. There was minimal stool scattered throughout the bowel. The kidneys are atrophic as is the pancreas. She has had previous lap band procedure in the port is apparent at the left upper abdomen. I believe it hurts her because of her abdomen is so distended with fluid. 04/13/17 03:43Labs are back. Total white count is 8.0 with 83% neutrophils no bands 9% lymphocytes. There are slight poikilocytosis and anisocytosis with teardrop cells characteristic of splenomegaly. Hemoglobin is 13.1 with hematocrit of 38.5. Platelets counts normal at 201,000. PT is supratherapeutic at 71.4 with an INR 5.85. Serum sodium is low at 128 potassium is markedly elevated at 7.9. Chloride 94 bicarbonate 23. And a gap is elevated 18.9. BUN is 109 creatinine is 3.7. Glucose is 90 lactic acid normal at 1.8 magnesium is elevated at 2.7 total bilirubin is 2.6 AST 103 ALT 43 alk phosphatase 76. This suggests probably underlying Gilbert's syndrome. CK-MB fraction is 2.6 troponin I is 0.105 which is elevated. CRP is pending BNP is elevated at 7123. Total protein 7.7 albumin fraction low at 2.6. Serum lipase normal at 75. 04/13/17 04:00: Discussion with the daughter and the patient and Dr. Waggoner - [employer] hospital[employer] and decision made that she can stay here in [place] to receive aggressive treatment and management of her hyperkalemia and congestive heart failure. She does not wish to pursue dialysis. She wishes to be kept comfortable. Her status is listed as DO NOT RESUSCITATE. Daughter and patient appreciate that the prognosis is severely guarded due to multi-organ failure. Therefore aggressive management will be started for reduction of her serum potassium with 10 units of Humulin R insulin IV bolus with 1 amp of D50. Kayexalate 45 g by mouth. Sodium bicarbonate one amp IV push. Calcium gluconate 1 ampule IV push. Lasix 60 mg IV for congestive failure as well as hyperkalemia. She has more carpal after the Dilaudid 0.5 mg IV for abdominal pain. Abdominal pain is secondary to severe ascites particularly pushing her lap band port site in the left upper quadrant. She is supratherapeutic in terms of her Coumadin levels which will be placed on hold at this time she shows no signs of active bleeding and therefore will not receive vitamin K or FFP at this time. Patient to be admitted to the med surgery floor on telemetry. Bridge orders will be written. Departure - Departure Time of Disposition: 04:17 Disposition: Admitted As Inpatient 66 Condition: Serious Clinical Impression: Supratherapeutic INR, Congestive heart failure with left ventricular diastolic dysfunction, NYHA class 1, Chronic renal insufficiency, stage V, Hyperkalemia, diminished renal excretion, Anasarca Cirrhosis of liver with ascites Qualifiers: Hepatic cirrhosis type: unspecified hepatic cirrhosis Qualified Code(s): K74.60 - Unspecified cirrhosis of liver - Discharge Information Referrals: PCP,None [Primary Care Provider] - Additional Instructions: Patient to be admitted to our hospital with multiorgan failure. She has diastolic dysfunction and chronic congestive heart failure which is acutely worsened. She has developed cirrhosis of the liver of unknown etiology with marked ascites. At present she has anasarca. She has marked hyperkalemia secondary to renal insufficiency stage V. She does not wish to pursue dialysis. She wishes to be kept comfortable and do what we can here in [place]. Daughter present and both her and the patient understand that the prognosis is extremely guarded.
[2017-04-13] MEDS: Sodium Chloride 0.9% 1,000 ML IV SCH ×2 (02:56→13:44)
[2017-04-13] MEDS ORDERED: Furosemide 40 MG/4 ML VIAL IVPUSH ONE (03:54)
[2017-04-13] MEDS ORDERED: Insulin Regular, Human 100 Units/ML 3 ML Vial IVPUSH ONE (04:00)
[2017-04-13] MEDS ORDERED: 50% Dextrose in Water 50 ML Syringe IVPUSH ONE (04:01)
[2017-04-13] MEDS ORDERED: Calcium Gluconate 10% 1 GM/10 ML SDV IVPUSH ONE (04:02)
[2017-04-13] MEDS ORDERED: Sodium Bicarbonate 8.4% 50 MEQ/50 ML Syringe IVPUSH ONE (04:02)
[2017-04-13] MEDS ORDERED: Sodium Polystyrene Sulfonate 15 GM/60 ML Susp 60 ML Bot PO ONE (04:03)
[2017-04-13] MEDS ORDERED: Sodium Bicarbonate 8.4% 50 MEQ/50 ML Syringe ONE (04:49)
[2017-04-13] MEDS ORDERED: HYDROmorphone 0.5 MG/0.5 ML Syringe IVPUSH PRN (06:03)
[2017-04-13] MEDS ORDERED: Ondansetron 4 MG/2 ML SDV IVPUSH PRN (06:11)
--- NOTE | 2017-04-13 06:57 | CR ---
Abdomen: Supine view of the abdomen was obtained. Scattered gas within colon is seen which appears within normal limits. Vascular calcification is noted. Lap band is present. Degenerative change is seen within the spine. Surgical clips are seen from prior cholecystectomy. Impression: 1. Incidental findings. Nothing acute is seen. Diagnostic code #2
--- NOTE | 2017-04-13 06:57 | CR ---
Chest: Frontal view of the chest was obtained. Comparison: No prior study. Lap band is partially seen. Dense mitral annulus calcification is seen. Lung markings are diffusely increased on both sides of the chest. Degenerative spurring is noted within the spine. Bony structures are osteopenic. Impression: 1. Increased lung markings within the chest. Without old film, uncertain if this is chronic or represents diffuse bronchitis or even a combination of both. My suspicions are that this is mostly chronic and due to fibrosis. 2. Other incidental findings. Diagnostic code #3
[2017-04-13] MEDS ORDERED: Furosemide 40 MG/4 ML VIAL IVPUSH SCH (12:00)
[2017-04-13] MEDS ORDERED: Acetaminophen/HYDROcodone 325-5 MG Tab PO PRN (12:45)
[2017-04-13] MEDS ORDERED: Temazepam 7.5 MG Cap PO PRN (12:45)
[2017-04-13] MEDS ORDERED: Albuterol/Ipratropium 3.0-0.5 MG/3 ML Neb Soln NEB PRN (12:45)
[2017-04-13] MEDS ORDERED: Polyethylene Glycol 3350 Powder 17 GM Packet PO PRN (12:45)
[2017-04-13] MEDS ORDERED: Docusate Sodium 100 MG Cap PO PRN (12:45)
[2017-04-13] MEDS ORDERED: Acetaminophen 325 MG Tab PO PRN (12:45)
[2017-04-13] MEDS ORDERED: Bisacodyl 5 MG Tab PO PRN (12:45)
[2017-04-13] MEDS ORDERED: LORazepam 2 MG/ML MDV IV PRN (12:45)
[2017-04-13] MEDS ORDERED: Promethazine 12.5 MG in Sodium Chloride 0.9% 50 ML IV PRN (12:45)
[2017-04-13] MEDS: Phytonadione ORAL 2.5mg/2.5ml Soln Simple Syrup U/D PO ONE ×3 (13:07→15:03)
--- NOTE | 2017-04-13 13:12 | PCM.HP ---
<Suma Gutiérrez - Last Filed: 04/13/17 15:21> H&P History of Present Illness - General Date of Service: 04/13/17 Admit Problem/Dx: Admission Diagnosis/Problem Admission Diagnosis/Problem Hyperkalemia, diminished renal excretion Source of Information: Patient, Family, Old Records, RN, RN Notes Reviewed History Limitations: Reports: No Limitations - History of Present Illness Initial Comments - Free Text/Narative: Today we have a pleasant 81yo female who presented to ED via ambulance from a local [place]. Her chief complaint was severe abdominal pain of the Left Upper quadrant. This has been going on for about 2.5 days and does not seem to be getting better. She says the pain radiates slightly through to her mid back area. She is nauseated, but has no vomiting, with little oral intake over the last 2 days or so. She also reports not having much flatus in the last day or so either. She states not having a bowel movement for around 4 days now. She did have a CT at [facility] on 04/12/17, Dr. Reardon was able to have the scans pushed to him so he could visualize them in ER. The radiologist's impression was 1. Cirrhosis with stigmata of portal HTN including ascites and body wall edema. Ascites is new from pelvis CT done 07/28/16. 2. Bibasilar fibrotic appearing interstitial lung disease with a 4mm pulmonary nodule or area of focal nodular scarring in the lingula. The radiologist noted that the gastric lap band appeared to be seated properly as well. She carries a surgical hx of cholecystectomy and gastric band procedure; both of which appear to have been done laprascopically and reported to have been done many years ago. She is on coumadin therapy currently for her chronic A-fib and valvular heart disease. She is on chronic oxygen therapy all the time at 2 lpm via nasal cannula. Onset of Symptoms: Reports: Gradual Duration of Symptoms: Reports: Day(s): (2.5), Colic, Constant, Getting Worse Location: Reports: Abdomen (LUQ) Quality: Reports: Sharp, Stabbing Severity: Moderate (7-8/10) Improves with: Reports: None Worsens with: Reports: Eating Context: Denies: Sick Contact, Activity/Exercise, Lifting, Exertion, Trauma, Travel Associated Symptoms: Reports: Loss of Appetite, Nausea/Vomiting (nausea w/o vomiting), Shortness of Breath, Weakness. Denies: Chest Pain, cough w sputum, Fever/Chills Left Abdomen Pain Score (Numeric/FACES): 8 - Related Data Allergies/Adverse Reactions: Allergies Allergy/AdvReac Type Severity Reaction Status Date / Time amiodarone Allergy Severe Anaphylactic Verified 08/30/16 11:37 Shock Penicillins Allergy Severe Hives Verified 08/30/16 11:37 Cephalosporins Allergy Cannot Verified 08/30/16 11:37 Remember [id number] Reductase Allergy Other Verified 08/30/16 11:37 Inhibitor Past Medical History HEENT History: Reports: Cataract, Hard of Hearing, Impaired Vision Other HEENT History: Wears correctivelenses, not with her. Cardiovascular History: Reports: Afib, Heart Failure, Heart Murmur, Heart Valve Replacement, High Cholesterol, Hypertension, [place] Other Cardiovascular History: SVT Respiratory History: Reports: COPD, Pulmonary Fibrosis Gastrointestinal History: Reports: Cholelithiasis, Diverticulosis, GERD, Other ( See Below) Other Gastrointestinal History: Lap band surgery Genitourinary History: Reports: Chronic Renal Insuffiency MATH PROFESSOR History: Reports: Musculoskeletal History: Reports: Back Pain, Chronic, Osteoarthritis, Osteoporosis Psychiatric History: Reports: Depression Endocrine/Metabolic History: Reports: Diabetes, Type II, Obesity/BMI 30+ Hematologic History: Reports: Anticoagulation Therapy - Infectious Disease History Infectious Disease History: Reports: Chicken Pox, Measles - Past Surgical History HEENT Surgical History: Reports: Cataract Surgery, Other (See Below) Other HEENT Surgeries/Procedures: Tear duct surgery 1 week ago Cardiovascular Surgical History: Reports: None Respiratory Surgical History: Reports: None GI Surgical History: Reports: Cholecystectomy Female Surgical History: Reports: None Endocrine Surgical History: Reports: None Musculoskeletal Surgical History: Reports: None Social & Family History - Family History Family Medical History: Noncontributory OBGYN: Reports: Endocrine/Metabolic: Reports: Diabetes, type II Oncologic: Reports: Colon - Tobacco Use Smoking Status *Q: Never Smoker Used Tobacco, but Quit: No Second Hand Smoke Exposure: No - Caffeine Use Caffeine Use: Reports: Coffee - Alcohol Use Days Per Week of Alcohol Use: 1 Number of Drinks Per Day: 0 Total Drinks Per Week: 0 - Recreational Drug Use Recreational Drug Use: No - Living Situation & Occupation Living situation: Reports: Extended Care Facility (Since 2016) Occupation: Retired H&P Review of Systems - Review of Systems: Review Of Systems: See Below General: Reports: Malaise, Weakness, Fatigue, Decreased Appetite. Denies: Fever , Chills, Night Sweats, Weight Gain HEENT: Reports: Glasses, Other (dry mouth). Denies: Hearing Changes Pulmonary: Reports: Shortness of Breath (chronic oxygen user @2lpm NC), Cough. Denies: Wheezing, Sputum Cardiovascular: Reports: Dyspnea on Exertion, Orthopnea, Edema, Blood Pressure Problem. Denies: Chest Pain, Palpitations, Lightheadedness Gastrointestinal: Reports: Abdominal Pain, Constipation, Decreased Appetite ( see HPI), Nausea. Denies: Black Stool, Bloody Stool, Diarrhea, Flatus, Vomiting Genitourinary: Reports: Frequency (lasix therapy), Incontinence (stress and urgency component). Denies: Dysuria, Burning, Hematuria Musculoskeletal: Reports: Back Pain, Joint Pain (knees, hips, and shoulders at times). Denies: Joint Swelling Skin: Reports: Bruising (due to coumadin therapy). Denies: Jaundice, Pallor, Urticaria Psychiatric: Reports: Depression. Denies: Anxiety, Hallucinations Neurological: Reports: No Symptoms, Difficulty Walking, Gait Disturbance Hematologic/Lymphatic: Reports: Easy Bleeding (coumadin therapy) Immunologic: Reports: No Symptoms Exam - Exam Exam: See Below - Vital Signs Vital Signs: Last Vital Signs Temp 97.6 F 04/13/17 08:00 Pulse 77 04/13/17 06:41 Resp 18 04/13/17 08:00 BP 103/70 04/13/17 10:03 Pulse Ox 96 04/13/17 06:41 Weight: 109.588 kg - Exam Quality Assessment: Supplemental Oxygen (chronic O2 therapy @ 2L), DVT Prophylaxis General: Alert, Oriented, Cooperative HEENT: Conjunctiva Clear, EOMI, Hearing Intact, Mucosa Moist & [place], Nares Patent, Posterior Pharynx Clear, Other (tongue is dry), PERRLA Neck: Supple, Trachea Midline. No: JVD Lungs: Clear to Auscultation, Normal Respiratory Effort. No: Rhonchi, Wheezing Cardiovascular: Regular Rate, Regular Rhythm, Normal S1, Normal S2, Systolic Murmur (mitral insufficiency) GI/Abdominal Exam: Soft, No Organomegaly, Distended (ascitic in appearance), Tender (LUQ and over epigastrum), Abnormal Bowel Sounds (slightly decreased). No: No Mass, Guarding, Rebound (Female) Exam: Deferred Rectal (Female) Exam: Deferred Back Exam: Normal Inspection. No: CVA Tenderness (L), CVA Tenderness (R) Extremities: Non-Tender, Normal Capillary Refill, Pedal Edema (4+ pitting). No : Increased Warmth, Redness Peripheral Pulses: 1+: Dorsalis Pedis (L), Dorsalis Pedis (R), 2+: Radial (L), Radial (R) Skin: Warm, Dry, Intact, Other (general pallor and bruising diffusely throughout due to coumadin therapy) Neurological: Cranial Nerves Intact Neuro Extensive - Mental Status: Alert, Oriented x3, Normal Mood/Affect, Normal Cognition, Memory Intact, Other (very sleepy upon examination, had to keep waking her up) Neuro Extensive - Motor, Sensory, Reflexes: CN II-XII Intact Psychiatric: Alert, Normal Affect, Normal Mood - Patient Data Lab Results Last 24 hrs: Laboratory Results - last 24 hr 04/13/17 04/13/17 04/13/17 Range/Units 06:10 06:34 10:05 Sodium 130 L (136-145) mEq/L Potassium 7.2 H* (3.5-5.1) mEq/L Chloride 94 L (98-107) mEq/L Carbon Dioxide 24 (21-32) mEq/L Anion Gap 19.2 H (5-15) BUN 107 H (7-18) mg/dL Creatinine 3.7 H (0.55-1.02) mg/dL Est Cr Clr Drug Dosing 12.03 mL/min Estimated GFR (MDRD) 12 (>60) mL/min BUN/Creatinine Ratio 28.9 H (14-18) Glucose 72 L (83-115) mg/dL POC Glucose 79 L (83-110) mg/dL Calcium 9.1 (8.5-10.1) mg/dL Total Bilirubin 2.3 H (0.2-1.0) mg/dL AST 102 H (15-37) U/L ALT 45 (14-59) U/L Alkaline Phosphatase 77 (46-116) U/L Ammonia (11-32) umol/L Total Protein 7.6 (6.4-8.2) g/dl Albumin 2.6 L (3.4-5.0) g/dl Globulin 5.0 gm/dL Albumin/Globulin Ratio 0.5 L (1-2) MRSA (PCR) Negative 04/13/17 Range/Units 10:05 Sodium (136-145) mEq/L Potassium (3.5-5.1) mEq/L Chloride (98-107) mEq/L Carbon Dioxide (21-32) mEq/L Anion Gap (5-15) BUN (7-18) mg/dL Creatinine (0.55-1.02) mg/dL Est Cr Clr Drug Dosing mL/min Estimated GFR (MDRD) (>60) mL/min BUN/Creatinine Ratio (14-18) Glucose (83-115) mg/dL POC Glucose (83-110) mg/dL Calcium (8.5-10.1) mg/dL Total Bilirubin (0.2-1.0) mg/dL AST (15-37) U/L ALT (14-59) U/L Alkaline Phosphatase (46-116) U/L Ammonia 36 H (11-32) umol/L Total Protein (6.4-8.2) g/dl Albumin (3.4-5.0) g/dl Globulin gm/dL Albumin/Globulin Ratio (1-2) MRSA (PCR) Result Diagrams: 04/13/17 02:45 04/13/17 10:05 EKG INTERPRETATION EKG Interpretation Comments: EKG done in ER --physician interpretation rhythm A flutter (4:1 AV block), rate 82, Right axis dev, variable p waves, RBBB w left posterior fascicular block, decreased voltage throughout pre-cordial leads. Nonspecific T-wave inversion in II,II, AVF; cannot R/O ischemia at this time. Mildly prolonged QT segment *Q Meaningful Use (ADM) - VTE *Q VTE Criteria *Q: VTE Mechanical Contraindications *Q: Congestive Heart Failure VTE Pharmacological Contraindications *Q: High INR Value (supratherapeutic INR) VTE Anticoagulation Contraindications: Alternative TX Request PT - VTE Risk Assess *Q Each Risk Factor Represents 1 Point: None, Swollen Legs, Current, Obesity ( BMI > 25 kg/m2), Congestive heart failure (CHF), Abnormal Pulmonary Function (COPD) , Medical Patient Currently on Bedrest Total Score 1 Point Risk Factors: 5 Each Risk Factor Represents 2 Points: Laparoscopic surgery greater than 45 minutes Total Score 2 Point Risk Factors: 2 Each Risk Factor Represents 3 Points: Age 75 Years or Greater Total Score 3 Point Risk Factors: 3 Each Risk Factor Represents 5 Points: None Total Score 5 Point Risk Factors: 0 Venous Thromboembolism Risk Factor Score *Q: 10 - Stroke *Q Stroke Criteria *Q: Aspirin Contraindications Stroke *Q: Other (Use Special Inst) Anticoagulation Contraindications Stroke *Q: TX/PROC Refused by PT Antithrombotic Contraindications Stroke *Q: TX/PROC Refused by PT Thrombolytic/Fibrinolytic Contraindications Stroke *Q: TX/PROC Refused by PT Statin Contraindications Stroke *Q: TX/PROC Refused by PT Rehabilitation Assessment Contraindication *Q: Tx/proc refused by pt - AMI *Q AMI Criteria *Q: Aspirin Contraindications AMI *Q: Further Opinion Sought Thrombolytic/Fibrinolytic Contraindications IV (AMI) *Q: Further opinion sought Statin Contraindications AMI *Q: Further Opinion Sought Problem List Initiated/Reviewed/Updated: Yes Orders Last 24hrs: Active Orders 24 hr Category Date Time Status Admission Status [Patient Status] [ADT] Routine ADT 04/13/17 11:59 Active Bedrest [RC] DAILY Care 04/13/17 04:35 Active Notify Provider Consults [RC] ASDIRECTED Care 04/13/17 09:45 Active Consult to Nurse Recruiter [CONS] Routine Cons 04/13/17 04:35 Active Consult to Physician [CONS] Routine Cons 04/13/17 09:44 Active ADA Diabetic [[place] [employer] Diet] [DIET Diet 04/13/17 Dinner Active ] Clear Liquid Diet [DIET] Diet 04/13/17 Breakfast Active Heart Healthy Diet [DIET] Diet 04/13/17 Dinner Active Furosemide [Lasix] Med 04/13/17 12:00 Active 40 mg IVPUSH Q6HR HYDROmorphone [Dilaudid] Med 04/13/17 06:03 Active 0.5 mg IVPUSH Q2HR PRN Ondansetron [Zofran] Med 04/13/17 06:11 Active 4 mg IVPUSH Q6HR PRN Resuscitation Status Routine Resus Stat 04/13/17 06:01 Ordered Medication Orders Furosemide (Lasix) 40 mg IVPUSH Q6HR CELESTINO Hydromorphone HCl (Dilaudid) 0.5 mg IVPUSH Q2HR PRN PRN Reason: Pain Sodium Chloride (Normal Saline) 1,000 mls @ 100 mls/hr IV ASDIRECTED [facility] Last Admin: 04/13/17 02:56 Dose: 100 mls/hr Ondansetron HCl (Zofran) 4 mg IVPUSH Q6HR PRN PRN Reason: Nausea/Vomiting Assessment/Plan Comment:: Assessment/Plan: Acute: Supratherapeutic INR - stable -PT-71.4, INR-5.85 this AM; hold coumadin until further notice -Pt may be started on ASA for thrombosis prophylaxis and A-fib -Vitamin K can be given to help correct INR levels -continue to monitor Hyperkalemia - stable -K+ levels were 7.9 in ER, they have decreased to 7.2 at blood draw this AM. -10 units of Humulin R insulin IV bolus with 1 amp of D50 given in ER -Kayexelate 45g PO given in ER - continue kayexelate therapy -1 amp Sodium bicarb IV push given in ER -1 amp Calcium gluconate IV push given in ER - can be given for cardiprotective component due to increased potassium levels for arrhythmia prophylaxis -Dialysis was discussed with patient and family; they declined at this time -Patiromer could be entertained as a bridge therapy to help facilitate the removal of potassium from the body -Lasix 60mg IV push was given in ER for hyperkalemia and CHF. -Pt has chronic renal insufficiency and loop diuretics should be given with caution without properly monitoring kidney function -Hold PO potassium, restrict dietary potassium -EKG PRN for any rhythm disturbance -Telemetry monitoring for rhythm disturbance Cirrhosis of liver with ascites - stable -Dilaudid 0.5mg IV given in ER for abdominal pain secondary to ascites. -MELD score of 42 -Hepatitis B was negative -Dietary restriction of sodium -Diuretic therapy of spironolactone and furosemide is indicated for cirrhotic patients with ascites; however the patient has chronic renal insufficiency and loop diuretics should be given with caution without properly monitoring kidney function. HF with preserved EF 50-55% secondary to severe valvular dysfunction -BNP of 7123 in ER -Dietary sodium restriction -Continue metoprolol for HTN and A-fib rate control -Fluid restriction is appropriate (1.5-2L/day) -Spironolactone would provide diuresis Chronic renal insufficiency -BUN 107, creatinine is 3.7 -continue to monitor Chronic: Impaired vision and hearing HTN Chronic hypoxia on 1-2L NC OA/DJD Constipation Chronic back pain Depression DM2 Obesity Plan: Admit Routine AM labs Monitor INR and K+ levels closely Resume most home meds Hold Coumadin and potassium Routine vitals Daily weights PT/OT consult SW/CM for discharge planning Code status is DNI with CPR via DPOA in room <Juan Waggoner T - Last Filed: 04/14/17 07:14> H&P History of Present Illness - General Admit Problem/Dx: Admission Diagnosis/Problem Admission Diagnosis/Problem Hyperkalemia, diminished renal excretion Source of Information: Patient, Family, Old Records, Provider, RN Notes Reviewed History Limitations: Reports: No Limitations - History of Present Illness Initial Comments - Free Text/Narative: This is an 81 yo elderly white female with past medical hx/o H&P Review of Systems - Review of Systems: Review Of Systems: See Below General: Reports: Malaise, Weakness, Fatigue, Decreased Appetite. Denies: Fever , Chills HEENT: Reports: No Symptoms, Other Pulmonary: Reports: Shortness of Breath, Cough. Denies: Wheezing, Sputum Cardiovascular: Reports: Dyspnea on Exertion, Edema, Blood Pressure Problem. Denies: Chest Pain, Palpitations, Lightheadedness Gastrointestinal: Reports: Abdominal Pain, Constipation, Decreased Appetite, Flatus, Nausea. Denies: Black Stool, Bloody Stool, Diarrhea, Difficulty Swallowing, Vomiting Genitourinary: Reports: Frequency (she is on lasix ), Incontinence. Denies: Dysuria, Burning, Hematuria Musculoskeletal: Reports: Back Pain, Joint Pain Skin: Reports: Bruising. Denies: Jaundice, Pallor, Urticaria Psychiatric: Reports: Depression. Denies: Anxiety, Hallucinations Neurological: Reports: No Symptoms, Difficulty Walking, Gait Disturbance Hematologic/Lymphatic: Reports: Easy Bleeding, Easy Bruising Immunologic: Reports: No Symptoms Exam - Exam Exam: See Below - Vital Signs Vital Signs: Last Vital Signs Temp 35.6 C 04/13/17 16:00 Pulse 72 04/13/17 16:00 Resp 16 04/13/17 16:00 BP 79/44 L 04/13/17 16:00 Pulse Ox 96 04/13/17 16:00 - Exam Quality Assessment: Supplemental Oxygen, DVT Prophylaxis General: Alert, Oriented, Cooperative, Obtunded HEENT: Conjunctiva Clear, EOMI, Mucosa Moist & [place], Nares Patent, Normal Nasal Septum, Posterior Pharynx Clear, Pupils Equal, Pupils Reactive, Other, PERRLA Neck: Supple, Trachea Midline, JVD Lungs: Clear to Auscultation, Normal Respiratory Effort, Decreased Breath Sounds , Rhonchi. No: Wheezing Cardiovascular: Irregular Rhythm, Systolic Murmur GI/Abdominal Exam: Soft, No Organomegaly, No Mass, Distended, Guarding, Rebound , Tender, Abnormal Bowel Sounds (Female) Exam: Deferred Rectal (Female) Exam: Deferred Back Exam: Normal Inspection, Decreased Range of Motion. No: CVA Tenderness (L) , CVA Tenderness (R) Extremities: Non-Tender, Pedal Edema, Increased Warmth, Redness. No: Normal Inspection Peripheral Pulses: 1+: Dorsalis Pedis (L), Dorsalis Pedis (R) Skin: Warm, Dry, Intact, Other Neuro Extensive - Mental Status: Oriented x3, Normal Cognition, Memory Intact, Other Neuro Extensive - Motor, Sensory, Reflexes: CN II-XII Intact (limited but grossly intact), Abnormal Gait Psychiatric: Alert, Normal Affect, Normal Mood - Patient Data Lab Results Last 24 hrs: Laboratory Results - last 24 hr 04/13/17 04/13/17 04/13/17 Range/Units 06:10 06:34 10:05 PT (8.0-13.0) SECONDS INR Sodium 130 L (136-145) mEq/L Potassium 7.2 H* (3.5-5.1) mEq/L Chloride 94 L (98-107) mEq/L Carbon Dioxide 24 (21-32) mEq/L Anion Gap 19.2 H (5-15) BUN 107 H (7-18) mg/dL Creatinine 3.7 H (0.55-1.02) mg/dL Est Cr Clr Drug Dosing 12.03 mL/min Estimated GFR (MDRD) 12 (>60) mL/min BUN/Creatinine Ratio 28.9 H (14-18) Glucose 72 L (83-115) mg/dL POC Glucose 79 L (83-110) mg/dL Calcium 9.1 (8.5-10.1) mg/dL Total Bilirubin 2.3 H (0.2-1.0) mg/dL AST 102 H (15-37) U/L ALT 45 (14-59) U/L Alkaline Phosphatase 77 (46-116) U/L Ammonia (11-32) umol/L Total Protein 7.6 (6.4-8.2) g/dl Albumin 2.6 L (3.4-5.0) g/dl Globulin 5.0 gm/dL Albumin/Globulin Ratio 0.5 L (1-2) MRSA (PCR) Negative 04/13/17 04/13/17 Range/Units 10:05 13:50 PT 74.1 H* (8.0-13.0) SECONDS INR 6.06 H* Sodium (136-145) mEq/L Potassium (3.5-5.1) mEq/L Chloride (98-107) mEq/L Carbon Dioxide (21-32) mEq/L Anion Gap (5-15) BUN (7-18) mg/dL Creatinine (0.55-1.02) mg/dL Est Cr Clr Drug Dosing mL/min Estimated GFR (MDRD) (>60) mL/min BUN/Creatinine Ratio (14-18) Glucose (83-115) mg/dL POC Glucose (83-110) mg/dL Calcium (8.5-10.1) mg/dL Total Bilirubin (0.2-1.0) mg/dL AST (15-37) U/L ALT (14-59) U/L Alkaline Phosphatase (46-116) U/L Ammonia 36 H (11-32) umol/L Total Protein (6.4-8.2) g/dl Albumin (3.4-5.0) g/dl Globulin gm/dL Albumin/Globulin Ratio (1-2) MRSA (PCR) Result Diagrams: 04/13/17 02:45 04/13/17 10:05 *Q Meaningful Use (ADM) - VTE *Q VTE Criteria *Q: - Stroke *Q Stroke Criteria *Q: - AMI *Q AMI Criteria *Q: Problem List Initiated/Reviewed/Updated: Yes Orders Last 24hrs: Active Orders 24 hr Category Date Time Status Admission Status [Patient Status] [ADT] Routine ADT 04/13/17 11:59 Active Antiembolic Devices [RC] PER UNIT ROUTINE Care 04/13/17 12:56 Active Bedrest [RC] DAILY Care 04/13/17 04:35 Active Blood Glucose Check, Bedside [RC] QIDACANDBED Care 04/13/17 13:23 Active Cardiac Monitoring [RC] CONTINUOUS Care 04/13/17 12:55 Active Height and Weight [RC] DAILY Care 04/13/17 12:45 Active Insert Cross Catheter [Insert Urinary Catheter] [OM.PC] Care 04/13/17 13:30 Ordered Stat Intake and Output [RC] Q2HR Care 04/13/17 12:55 Active Notify Provider Consults [RC] ASDIRECTED Care 04/13/17 09:45 Active Oxygen Therapy [RC] PRN Care 04/13/17 12:54 Active Pulse Oximetry [RC] CONTINUOUS Care 04/13/17 12:55 Active RT Aerosol Therapy [RC] ASDIRECTED Care 04/13/17 13:02 Active Up With Assistance [RC] ASDIRECTED Care 04/13/17 12:45 Active Up ad Bessie [RC] ASDIRECTED Care 04/13/17 12:45 Active Urinary Catheter Assessment [RC] Q4HR Care 04/13/17 13:23 Active VTE/DVT Education [RC] PER UNIT ROUTINE Care 04/13/17 12:54 Active Vital Signs [RC] Q4HR Care 04/13/17 12:54 Active Consult to Case Management [CONS] Routine Cons 04/13/17 13:05 Active Consult to Nurse Recruiter [CONS] Routine Cons 04/13/17 04:35 Active Consult to Physician [CONS] Routine Cons 04/13/17 09:44 Active Consult to Transfer Car Operator Drier [CONS] Routine Cons 04/13/17 13:05 Active OT Evaluation and Treatment [CONS] Routine Cons 04/13/17 13:05 Active PT Evaluation and Treatment [CONS] Routine Cons 04/13/17 13:05 Active Respiratory Care Assess and Treatment [CONS] Routine Cons 04/13/17 13:05 Active ADA Diabetic [[place] [employer] Diet] [DIET Diet 04/13/17 Dinner Active ] Consistent Carbohydrate Diet [DIET] Diet 04/13/17 Lunch Active Heart Healthy Diet [DIET] Diet 04/13/17 Dinner Active BASIC METABOLIC PANEL,BMP [CHEM] AM Lab 04/14/17 05:11 Ordered BASIC METABOLIC PANEL,BMP [CHEM] AM Lab 04/15/17 05:11 Ordered BASIC METABOLIC PANEL,BMP [CHEM] AM Lab 04/16/17 05:11 Ordered BASIC METABOLIC PANEL,BMP [CHEM] AM Lab 04/17/17 05:11 Ordered BASIC METABOLIC PANEL,BMP [CHEM] AM Lab 04/18/17 05:11 Ordered C-REACTIVE PROTEIN [CHEM] AM Lab 04/14/17 05:11 Ordered C-REACTIVE PROTEIN [CHEM] AM Lab 04/15/17 05:11 Ordered C-REACTIVE PROTEIN [CHEM] AM Lab 04/16/17 05:11 Ordered C-REACTIVE PROTEIN [CHEM] AM Lab 04/17/17 05:11 Ordered CBC WITH AUTO DIFF [HEME] AM Lab 04/14/17 05:11 Ordered CBC WITH AUTO DIFF [HEME] AM Lab 04/15/17 05:11 Ordered CBC WITH AUTO DIFF [HEME] AM Lab 04/16/17 05:11 Ordered CBC WITH AUTO DIFF [HEME] AM Lab 04/17/17 05:11 Ordered CKMB [CHEM] Routine Lab 04/13/17 18:00 Ordered INR,PT,PROTHROMBIN TIME [COAG] Routine Lab 04/13/17 18:00 Ordered MAGNESIUM [CHEM] AM Lab 04/14/17 05:11 Ordered MAGNESIUM [CHEM] AM Lab 04/15/17 05:11 Ordered MAGNESIUM [CHEM] AM Lab 04/16/17 05:11 Ordered TROPONIN I [CHEM] Routine Lab 04/13/17 18:00 Ordered Acetaminophen [Tylenol] Med 04/13/17 12:45 Active 650 mg PO Q4H PRN Acetaminophen/HYDROcodone [[place] 325-5 MG] Med 04/13/17 12:45 Active 1 tab PO Q4H PRN Albuterol/Ipratropium [DuoNeb 3.0-0.5 MG/3 ML] Med 04/13/17 12:45 Active 3 ml NEB Q4H PRN Bisacodyl [Dulcolax] Med 04/13/17 12:45 Active 5 mg PO DAILY PRN Docusate Sodium [Colace] Med 04/13/17 12:45 Active 100 mg PO BID PRN Docusate Sodium/Sennosides [Senna Plus] Med 04/13/17 12:45 Active 1 tab PO BID PRN HYDROmorphone [Dilaudid] Med 04/13/17 12:45 Active 0.25 mg IVPUSH Q2H PRN LORazepam [Ativan] Med 04/13/17 12:45 Active 0.25 mg IV Q6H PRN LORazepam [Ativan] Med 04/13/17 13:25 Active 2 mg IVPUSH Q4H PRN Levofloxacin/Dextrose 5%-Water [Levaquin in D5W 250 MG/ Med 04/13/17 14:00 Active 50 ML] 250 mg Premix Bag 1 bag IV Q48H Magnesium Rep Pharmacy to Dose [Pharmacy to Dose - Med 04/13/17 13:30 Active Magnesium Replacement] 1 dose .XX ASDIRECTED Metoprolol Tartrate [Lopressor] Med 04/13/17 13:25 Active 5 mg IVPUSH Q4H PRN Norepinephrine [Levophed] 4 mg Med 04/13/17 15:00 Active Dextrose 5% in Water 246 ml IV TITRATE Ondansetron [Zofran] Med 04/13/17 12:45 Active 4 mg IV Q6H PRN Polyethylene Glycol 3350 [MiraLAX] Med 04/13/17 12:45 Active 17 gm PO DAILY PRN Potassium Rep Pharmacy to Dose [Pharmacy to Dose - Med 04/13/17 13:30 Active Potassium Replacement] 1 dose .XX ASDIRECTED Promethazine [Phenergan] 12.5 mg Med 04/13/17 12:45 Active Sodium Chloride 0.9% [Normal Saline] 50 ml IV Q6H Sodium Polystyrene Sulfonate [Kayexalate] Med 04/13/17 13:45 Active 15 gm PO Q6H Temazepam [Restoril] Med 04/13/17 12:45 Active 7.5 mg PO BEDTIME PRN hydrALAZINE [Apresoline] Med 04/13/17 13:25 Active 10 mg IVPUSH Q4H PRN Antiembolic Hose [OM.PC] Per Unit Routine Oth 04/13/17 12:55 Ordered Resuscitation Status Routine Resus Stat 04/13/17 06:01 Ordered Medication Orders Acetaminophen (Tylenol) 650 mg PO Q4H PRN PRN Reason: Pain (Mild 1-3)/fever Last Admin: 04/13/17 13:46 Dose: 650 mg Hydrocodone Bitart/Acetaminophen ([place] 325-5 Mg) 1 tab PO Q4H PRN PRN Reason: Pain (moderate 4-6) Albuterol/Ipratropium (Duoneb 3.0-0.5 Mg/3 Ml) 3 ml NEB Q4H PRN PRN Reason: Shortness Of Breath/wheezing Bisacodyl (Dulcolax) 5 mg PO DAILY PRN PRN Reason: Constipation Docusate Sodium (Colace) 100 mg PO BID PRN PRN Reason: Constipation Hydralazine HCl (Apresoline) 10 mg IVPUSH Q4H PRN PRN Reason: Hypertension Hydromorphone HCl (Dilaudid) 0.25 mg IVPUSH Q2H PRN PRN Reason: Pain (severe 7-10) Last Admin: 04/13/17 15:07 Dose: 0.25 mg Sodium Chloride (Normal Saline) 1,000 mls @ 100 mls/hr IV ASDIRECTED CELESTINO Last Admin: 04/13/17 13:44 Dose: 100 mls/hr Infusion: 04/13/17 12:56 Dose: 100 mls/hr Admin: 04/13/17 02:56 Dose: 100 mls/hr Promethazine HCl 12.5 mg/ (Sodium Chloride) 50.5 mls @ 100 mls/hr IV Q6H PRN PRN Reason: Nausea/Vomiting Levofloxacin/Dextrose 250 mg/ (Premix) 50 mls @ 50 mls/hr IV Q48H CELESTINO Last Admin: 04/13/17 13:57 Dose: 50 mls/hr Norepinephrine Bitartrate 4 mg (/ Dextrose/Water) 250 mls @ 7.5 mls/hr IV TITRATE CELESTINO; 2 MCG/MIN PRN Reason: Protocol Last Titration: 04/13/17 16:47 Dose: 7 mcg/min, 26.25 mls/hr Titration: 04/13/17 16:35 Dose: 6 mcg/min, 22.5 mls/hr Titration: 04/13/17 16:05 Dose: 4 mcg/min, 15 mls/hr Titration: 04/13/17 15:44 Dose: 5 mcg/min, 18.75 mls/hr Titration: 04/13/17 15:39 Dose: 4 mcg/min, 15 mls/hr Titration: 04/13/17 15:34 Dose: 3 mcg/min, 11.25 mls/hr Admin: 04/13/17 15:08 Dose: 2 mcg/min, 7.5 mls/hr Lorazepam (Ativan) 0.25 mg IV Q6H PRN PRN Reason: Anxiety Last Admin: 04/13/17 16:33 Dose: 0.25 mg Lorazepam (Ativan) 2 mg IVPUSH Q4H PRN PRN Reason: Seizures Magnesium Sulfate (Pharmacy To Dose - Magnesium Replacement) 1 dose .XX ASDIRECTED [facility] Metoprolol Tartrate (Lopressor) 5 mg IVPUSH Q4H PRN PRN Reason: Tachycardia Ondansetron HCl (Zofran) 4 mg IV Q6H PRN PRN Reason: Nausea/Vomiting Last Admin: 04/13/17 13:46 Dose: 4 mg Polyethylene Glycol (Miralax) 17 gm PO DAILY PRN PRN Reason: Constipation Potassium Chloride (Pharmacy To Dose - Potassium Replacement) 1 dose .XX ASDIRECTED [facility] Senna/Docusate Sodium (Senna Plus) 1 tab PO BID PRN PRN Reason: Constipation Sodium Polystyrene Sulfonate (Kayexalate) 15 gm PO Q6H [facility] Last Admin: 04/13/17 15:02 Dose: Not Given Temazepam (Restoril) 7.5 mg PO BEDTIME PRN PRN Reason: Sleep Assessment/Plan Comment:: Assessment/Plan: Acute: Abdominal Pain - 2/2 Cirrhosis and Possible SBP (spontaneous bacterial infection) - Has Abdominal Ascites per CT scan from the clinic - Plan lower INR level and Therapeutic/Diagnostic Paracentesis - Start 250 mg IV Levaquin for prophylaxis - Pain and PRN Meds for symptomatic control - Dr. 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 Diagnosis; likely from BARBER/Fatty Liver Disease - Hepatitis B screening was negative - Hold off diuretic therapy due to acute renal failure - She would benefit with paracentesis if agreeable HF with Reduced EF 40-45% and Severe Valvular Dysfunction 08/31/2016 - BNP of 7123 on admission - Heart Failure protocol: Sodium/Fluid Restriction, Is/Os, Hold off Diuretics and Spironolactone (patient has ARF) - Fluid restriction is appropriate (1.5-2L/day) Profound Hypotension - BPs of 84/18 and 90/62 mmHg - Transfer to ICU and start pressure support Non-Oliguric Renal Failure - BUN 107, creatinine is 3.7 (She was 1.1 on discharge in August 2016) - Gentle Hydration and will resume diuretics once her renal function improves - Hold off ACEI and Lasix - Avoid other nephrotoxic agents - Pharmacy to renally dose all medications - Renal U/S to r/o Obstructive Uropathy - Cross catheter for strict Is/Os Anasarca - Likely 2/2 HF and Liver Failure - Hold off on diuretics; she is retaining potassium and her kidneys are not responsive at this time Supratherapeutic INR - Carries a hx/o Atrial Fibrillation - PT-71.4, INR-5.85 this AM; hold coumadin - Low dose Vitamin K to help correct INR level if patient is agreeable - Repeat level by 1800 today Hyperkalemia - 2/2 Acute Renal Failure - K+ levels were 7.9 in ER, they have decreased to 7.2 at blood draw this AM - Received the following initila treatment in ED: 10 units of Humulin R insulin IV bolus with 1 amp of D50, Kayexelate 45g PO x 1, 1 amp Sodium bicarb IV push x 1, 1 amp Calcium gluconate IV push x 1, and Lasix 60mg IV push x 1 - Hold PO potassium, ACEI and diuretics Multiple Organ Failure - Consider Comfort Measures at this time - Prognosis is serious to poor Chronic: Impaired Vision and Hearing HTN HLD Atrial Fibrillation, on Warfarin 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 Lastly, they were informed patient carries a poor overall prognosis.
[2017-04-13] MEDS ORDERED: Metoprolol Tartrate 5 MG/5 ML SDV IVPUSH PRN (13:25)
[2017-04-13] MEDS ORDERED: hydrALAZINE 20 MG/ML SDV IVPUSH PRN (13:25)
[2017-04-13] MEDS ORDERED: LORazepam 2 MG/ML MDV IVPUSH PRN (13:25)
[2017-04-13] MEDS: Sodium Polystyrene Sulfonate 15 GM/60 ML Susp 60 ML Bot PO SCH ×3 (13:46→23:47)
[2017-04-13] MEDS: Ondansetron 4 MG/2 ML SDV IV PRN ×2 (13:46→19:00)
[2017-04-13] MEDS ORDERED: Levofloxacin/Dextrose 5%-Water 250 MG in Premix Bag 1 BAG IV SCH (14:00)
[2017-04-13] MEDS ORDERED: Norepinephrine 4 MG in Dextrose 5% in Water 246 ML IV SCH ×2 (15:00)
[2017-04-13] MEDS: HYDROmorphone 0.5 MG/0.5 ML Syringe IVPUSH PRN ×4 (15:07→21:13)
[2017-04-13] MEDS ORDERED: Non-Formulary Medication 1 Each (Polyvinyl Alcohol/Povidone/Pf [Refresh Classic Eye Drops] EYEBOTH PRN (18:29)
--- NOTE | 2017-04-13 18:29 | PCM.SN ---
- Free Text/Narrative Note: Spoke to family and DPOAs, they have elected for her now to be comfort measures. She is now getting comfort measures medications. She is currently on levophed drip for pressure support but they will let us know when to stop it. All labs now will be discontinued per family's request. Patient is comfortable at this time.
[2017-04-13 20:32] VITALS: BP 74/47
[2017-04-13] MEDS ORDERED: MENTHOL TOP SCH (21:00)
[2017-04-13] MEDS ORDERED: [UNRECOGNIZED DRUG - OTHER] TOP SCH (21:00)
[2017-04-13] MEDS ORDERED: PRAMOXINE HCL TOP SCH (21:00)
--- NOTE | 2017-04-13 23:13 | PCM.DCSUM1 ---
Discharge Summary - Hospital Course Free Text/Narrative:: Shellie Stewart is a pleasant 81yo female who presented to ED via ambulance from a local [place]. Her chief complaint was severe abdominal pain of the Left Upper quadrant. This has been going on for about 2.5 days and does not seem to be getting better. She says the pain radiates slightly through to her mid back area. She is nauseated, but has no vomiting, with little oral intake over the last 2 days or so. She also reports not having much flatus in the last day or so either. She states not having a bowel movement for around 4 days now. She did have a CT at [facility] on 04/12/17, Dr. Reardon was able to have the scans pushed to him so he could visualize them in ER. The radiologist's impression was 1. Cirrhosis with stigmata of portal HTN including ascites and body wall edema. Ascites is new from pelvis CT done 07/28/16. 2. Bibasilar fibrotic appearing interstitial lung disease with a 4mm pulmonary nodule or area of focal nodular scarring in the lingula. The radiologist noted that the gastric lap band appeared to be seated properly as well. She carries a surgical hx of cholecystectomy and gastric band procedure; both of which appear to have been done laprascopically and reported to have been done many years ago. She is on coumadin therapy currently for her chronic A-fib and valvular heart disease. She is on chronic oxygen therapy all the time at 2 lpm via nasal cannula. Once in the ER an EKG was performed. This showed a flutter with a predominant 4 -1 AV block at 82 bpm. There is right axis deviation. 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 There was T-wave inversion in II, III , aVF. QT was mildly prolonged. Was 36C. Pulse 89. Respirations 19. Blood pressure 125/106. Pulse ox 96. She was found to have marked edema of her lower extremities up past the knees bilaterally. Abdomen was grossly distended and tympanic to percussion without any bowel sounds. Labs from [facility] were obtained. There is significant renal insufficiency with a BUN of 101. He is hyperkalemic with potassium 6.4. Mildly hyponatremic with a sodium of 131. Adding was 2.60. Bilirubin elevated at 2.5 with normal transaminases. White count was normal at 7.7. Hemoglobin 13.0. She was super therapeutically anticoagulated with a PTT of 49.7 and an INR of 4.34. Labs were obtained here. White count was 8.0 with 83% neutrophils, no bands, 9 % lymphocytes. There was slight Poikilocytosis and anisoctyosis with teardrop cells characteristic of splenomegaly. Hemoglobin 13.1 with hematocrit of 38.5. Platelets normal at 201,000. PT super therapeutic at 71.4 with an INR of 5.85. Serum sodium low at 128 potassium markedly elevated at 7.9. Chloride 94 , bicarbonate 23. Anion gap is elevated at 18.9. BUN is 109 and creatinine is 3.7. Glucose is 90. Lactic acid normal at 1.8. Magnesium elevated at 2.7. Total bilirubin 2.6. AST 103, ALT 43, alkaline phosphatase 76, suggesting a possible underlying Gilbert's syndrome. CK-MB fraction is 2.6 and troponin is 0.105. Therapy was 20.2. BNP was elevated at 7123. Protein 7.7 albumin fraction was low at 2.6. Serum lipase was normal at 7.5. The ED provider held discussion with the patients daughter and Dr. Waggoner, on-call hospitalist. It was decided that she would stay here in [place] to receive aggressive treatment and management of her hyperkalemia and congestive heart failure. The patient did not want to pursue dialysis. She wanted to be kept comfortable and her status listed as a DO NOT RESUSCITATE. Explained by the ED provider to the patient and her daughter that the patient's prognosis was very poor and listed as severely guarded due to multisystem organ failure. She was given 10 units of Humulin R insulin IV bolus with 1 amp of D50. Kayexalate 45 g was given by mouth. Sodium bicarbonate 1 amp IV push was initiated. Calcium gluconate 1 ampule IV push was given. Lasix 60 mg IV for congestive failure as well as hyperkalemia was also given. Dilaudid 0.5 mg IV was given for abdominal pain. It is suspected the abdominal pain was secondary to severe ascites pushing on her lap band port site in her upper left quadrant. Coumadin was held because she was not showing signs of active bleeding she did not receive vitamin K or fresh frozen plasma. She was subsequently admitted to the medical surgical floor on telemetry. She was DNR\DNI. Unfortunately the patient continued to deteriorate. Levofloxacin was given via IV and a norepinephrine drip was initiated. to maintain organ perfusion. Family and the patient were updated on her worsening prognosis. Dr. Waggoner, hospitalist spoke to the family and DPOAs to discuss prognosis and treatment options. The decision was made to place the patient on comfort measures. She was given Dilaudid for pain and the family was instructed to notify nursing when they were ready to discontinue her norepinephrine drip. The norepinephrine drip was discontinued and the patient was downgraded to medical surgical status. Family was by her side. Her heart rate and blood pressure slowly decreased until she reached asystole. At that time was verified by myself and RN Fidel Esparza at [phone]. This was made known to family. Hospital protocol was subsequently initiated. Nursing then contacted [facility] service. - Discharge Data Discharge Date: 04/13/17 (Admit date: 04/13/17) Discharge Disposition: 20 Preliminary Cause of *Q: Multi System Organ Failure Condition: - Discharge Diagnosis/Problem(s) (1) SNOMED Code(s): 256833012 ICD Code: R99 - ILL-DEFINED AND UNKNOWN CAUSE OF MORTALITY Status: Acute Priority: High Current Visit: Yes (2) Multiple organ system failure SNOMED Code(s): 70303968 ICD Code: [id number] - Status: Acute Priority: High Current Visit: Yes (3) Anasarca SNOMED Code(s): 190375585 ICD Code: R60.1 - GENERALIZED EDEMA Status: Acute Priority: High Current Visit: Yes (4) Chronic renal insufficiency, stage V SNOMED Code(s): 95772732 ICD Code: N18.5 - CHRONIC KIDNEY DISEASE, STAGE 5 Status: Acute Priority : High Current Visit: Yes (5) Cirrhosis of liver with ascites SNOMED Code(s): 33030789 ICD Code: K74.60 - UNSPECIFIED CIRRHOSIS OF LIVER Status: Acute Priority : High Current Visit: Yes Qualifiers: Hepatic cirrhosis type: unspecified hepatic cirrhosis Qualified Code(s): K74.60 - Unspecified cirrhosis of liver (6) Congestive heart failure with left ventricular diastolic dysfunction, NYHA class 1 SNOMED Code(s): 89490935 ICD Code: I50.30 - UNSPECIFIED DIASTOLIC (CONGESTIVE) HEART FAILURE Status : Acute Priority: High Current Visit: Yes (7) Hyperkalemia, diminished renal excretion SNOMED Code(s): 09510575 ICD Code: E87.5 - HYPERKALEMIA Status: Acute Priority: High Current Visit: Yes (8) Supratherapeutic INR SNOMED Code(s): 691308896 ICD Code: R79.1 - ABNORMAL COAGULATION PROFILE Status: Acute Priority: High Current Visit: Yes - Patient Summary/Data Consults: Consultations 04/13/17 13:05 Consult to Case Management [CONS] Routine Consult to Mortgage Professional [CONS] Routine OT Evaluation and Treatment [CONS] Routine PT Evaluation and Treatment [CONS] Routine Respiratory Care Assess and Treatment [CONS] Routine - Discharge Plan Patient Handouts: Heart Failure, [id number] Forms: ED Department Discharge Referrals: PCP,None [Primary Care Provider] - - Discharge Summary/Plan Comment DC Time >30 min.: No - General Info Date of Service: 04/13/17 Admission Dx/Problem (Free Text: Admission Diagnosis/Problem Admission Diagnosis/Problem Hyperkalemia, diminished renal excretion Subjective Update: Pt. unresponsive - Patient Data Vitals - Most Recent: Last Vital Signs Temp 96.1 F 04/13/17 20:00 Pulse 73 04/13/17 20:00 Resp 14 04/13/17 20:00 BP 74/47 L 04/13/17 20:00 Pulse Ox 95 04/13/17 20:00 Weight - Most Recent: 241 lb 9.6 oz I&O - Last 24 hours: Intake & Output 04/13/17 04/13/17 04/14/17 14:59 22:59 06:59 Intake Total 660 Output Total 0 Balance 660 Lab Results - Last 24 hrs: Laboratory Results - last 24 hr 04/13/17 04/13/17 Range/Units 13:50 17:19 PT 74.1 H* (8.0-13.0) SECONDS INR 6.06 H* POC Glucose 81 L (83-110) mg/dL Med Orders - Current: Current Medications Acetaminophen (Tylenol) 650 mg PO Q4H PRN PRN Reason: Pain (Mild 1-3)/fever Last Admin: 04/13/17 13:46 Dose: 650 mg Hydrocodone Bitart/Acetaminophen ([place]mitz 325-5 Mg) 1 tab PO Q4H PRN PRN Reason: Pain (moderate 4-6) Albuterol/Ipratropium (Duoneb 3.0-0.5 Mg/3 Ml) 3 ml NEB Q4H PRN PRN Reason: Shortness Of Breath/wheezing Bisacodyl (Dulcolax) 5 mg PO DAILY PRN PRN Reason: Constipation Docusate Sodium (Colace) 100 mg PO BID PRN PRN Reason: Constipation Hydralazine HCl (Apresoline) 10 mg IVPUSH Q4H PRN PRN Reason: Hypertension Hydromorphone HCl (Dilaudid) 0.25 mg IVPUSH Q2H PRN PRN Reason: Pain (severe 7-10) Last Admin: 04/13/17 21:13 Dose: 0.25 mg Sodium Chloride (Normal Saline) 1,000 mls @ 100 mls/hr IV ASDIRECTED CELESTINO Last Admin: 04/13/17 13:44 Dose: 100 mls/hr Promethazine HCl 12.5 mg/ (Sodium Chloride) 50.5 mls @ 100 mls/hr IV Q6H PRN PRN Reason: Nausea/Vomiting Levofloxacin/Dextrose 250 mg/ (Premix) 50 mls @ 50 mls/hr IV Q48H CELESTINO Last Admin: 04/13/17 13:57 Dose: 50 mls/hr Norepinephrine Bitartrate 4 mg (/ Dextrose/Water) 250 mls @ 7.5 mls/hr IV TITRATE CELESTINO; 2 MCG/MIN PRN Reason: Protocol Last Titration: 04/13/17 20:46 Dose: 0 mcg/min, 0 mls/hr Lorazepam (Ativan) 0.25 mg IV Q6H PRN PRN Reason: Anxiety Last Admin: 04/13/17 16:33 Dose: 0.25 mg Lorazepam (Ativan) 2 mg IVPUSH Q4H PRN PRN Reason: Seizures Magnesium Sulfate (Pharmacy To Dose - Magnesium Replacement) 1 dose .XX ASDIRECTED [facility] Metoprolol Tartrate (Lopressor) 5 mg IVPUSH Q4H PRN PRN Reason: Tachycardia Non-Formulary Medication (Polyvinyl Alcohol/Povidone/Pf [Refresh Classic Eye Drops]) 1 drop EYEBOTH BID PRN PRN Reason: Dry Eyes Non-Formulary Medication (Pramoxine Hcl/Menthol [Gold Jackson Med Anti-Itch]) 1 applic TOP BEDTIME [facility] Ondansetron HCl (Zofran) 4 mg IV Q6H PRN PRN Reason: Nausea/Vomiting Last Admin: 04/13/17 19:00 Dose: 4 mg Polyethylene Glycol (Miralax) 17 gm PO DAILY PRN PRN Reason: Constipation Potassium Chloride (Pharmacy To Dose - Potassium Replacement) 1 dose .XX ASDIRECTED [facility] Senna/Docusate Sodium (Senna Plus) 1 tab PO BID PRN PRN Reason: Constipation Sodium Polystyrene Sulfonate (Kayexalate) 15 gm PO Q6H [facility] Last Admin: 04/13/17 15:02 Dose: Not Given Temazepam (Restoril) 7.5 mg PO BEDTIME PRN PRN Reason: Sleep Discontinued Medications Calcium Gluconate (Calcium Gluconate) 1 gm IVPUSH ONETIME ONE Stop: 04/13/17 04:03 Last Admin: 04/13/17 04:44 Dose: 1 gm Dextrose/Water (Dextrose 50% In Water) 50 ml IVPUSH ONETIME ONE Stop: 04/13/17 04:02 Last Admin: 04/13/17 04:42 Dose: 50 ml Furosemide (Lasix) 60 mg IVPUSH NOW ONE Stop: 04/13/17 03:55 Last Admin: 04/13/17 04:59 Dose: 60 mg Furosemide (Lasix) 40 mg IVPUSH Q6HR [facility] Last Admin: 04/13/17 13:24 Dose: Not Given Hydromorphone HCl (Dilaudid) 0.5 mg IVPUSH ONETIME ONE Stop: 04/13/17 02:31 Last Admin: 04/13/17 02:56 Dose: 0.5 mg Hydromorphone HCl (Dilaudid) 0.5 mg IVPUSH Q2HR PRN PRN Reason: Pain Insulin Human Regular (Humulin R) 10 unit IVPUSH ONETIME ONE PRN Reason: Protocol Stop: 04/13/17 04:01 Last Admin: 04/13/17 04:41 Dose: 10 units Ondansetron HCl (Zofran) 4 mg IVPUSH ONETIME ONE Stop: 04/13/17 02:31 Last Admin: 04/13/17 02:56 Dose: 4 mg Ondansetron HCl (Zofran) 4 mg IVPUSH Q6HR PRN PRN Reason: Nausea/Vomiting Phytonadione (Aquamephyton) 2.5 mg PO ONETIME ONE Stop: 04/13/17 13:32 Last Admin: 04/13/17 13:07 Dose: 2.5 mg Sodium Bicarbonate (Sodium Bicarbonate 8.4%) 50 meq IVPUSH ONETIME ONE Stop: 04/13/17 04:03 Last Admin: 04/13/17 04:47 Dose: 50 meq Sodium Bicarbonate (Sodium Bicarbonate 8.4%) Confirm Administered Dose 50 meq .ROUTE .STK-MED ONE Stop: 04/13/17 04:50 Last Admin: 04/13/17 04:54 Dose: Not Given Sodium Polystyrene Sulfonate (Kayexalate) 45 gm PO NOW ONE Stop: 04/13/17 04:04 Last Admin: 04/13/17 04:27 Dose: 45 gm - Exam Physical Findings Comments:: Patient lying in hospital bead pulseless and apneic. Monitor reads asystole. This was confirmed in multiple leads. Multiple attempts made to listen for heart or lung sounds with no success. *Q Meaningful Use (DIS) - VTE *Q VTE Criteria *Q: VTE Mechanical Contraindications *Q: Congestive Heart Failure VTE Pharmacological Contraindications *Q: High INR Value (supratherapeutic INR) VTE Anticoagulation Contraindications: Alternative TX Request PT - Stroke *Q Stroke Criteria *Q: Aspirin Contraindications Stroke *Q: Other (Use Special Inst) Anticoagulation Contraindications Stroke *Q: TX/PROC Refused by PT Antithrombotic Contraindications Stroke *Q: TX/PROC Refused by PT Statin Contraindications Stroke *Q: TX/PROC Refused by PT Rehabilitation Assessment Contraindication *Q: Tx/proc refused by pt - AMI *Q AMI Criteria *Q: Aspirin Contraindications AMI *Q: Further Opinion Sought Statin Contraindications AMI *Q: Further Opinion Sought
== END 2017-04-13 23:45 | disposition expired | DRG 433 ==
LOC: JD.ED 02:20 → JD.ICU 04:05 → JD.MS 04:12 → MERGE 04:12 → UNDOADMIN 04:12 → JD.MS 11:59 → JD.ICU 11:59 → UNDOADMIN 12:50 → JD.ICU 12:50 → UNDODISIN 23:45
PROVIDERS: ADMIT Internal Medicine; ATTEND Internal Medicine
DX: K74.60 Unspecified cirrhosis of liver (principal); R18.8 Other ascites; I13.2 Hypertensive heart and chronic kidney disease with heart failure and with stage 5 chronic kidney disease, or end stage renal disease; I50.30 Unspecified diastolic (congestive) heart failure; N18.5 Chronic kidney disease, stage 5; E87.5 Hyperkalemia; R79.1 Abnormal coagulation profile; E11.22 Type 2 diabetes mellitus with diabetic chronic kidney disease; Z79.4 Long term (current) use of insulin; R60.1 Generalized edema; R09.02 Hypoxemia; M19.90 Unspecified osteoarthritis, unspecified site; K59.00 Constipation, unspecified; M81.0 Age-related osteoporosis without current pathological fracture; F32.9 Major depressive disorder, single episode, unspecified; E66.9 Obesity, unspecified; G89.29 Other chronic pain; M54.9 Dorsalgia, unspecified; H91.90 Unspecified hearing loss, unspecified ear; H54.7 Unspecified visual loss; I48.91 Unspecified atrial fibrillation; Z95.2 Presence of prosthetic heart valve; K21.9 Gastro-esophageal reflux disease without esophagitis; J84.10 Pulmonary fibrosis, unspecified; I25.2 Old myocardial infarction; J44.9 Chronic obstructive pulmonary disease, unspecified; Z51.5 Encounter for palliative care; Z88.0 Allergy status to penicillin; Z88.8 Allergy status to other drugs, medicaments and biological substances; Z79.01 Long term (current) use of anticoagulants; Z79.82 Long term (current) use of aspirin; Z99.81 Dependence on supplemental oxygen; Z79.899 Other long term (current) drug therapy; Z66 Do not resuscitate; Z98.84 Bariatric surgery status; Z68.36 Body mass index [BMI] 36.0-36.9, adult
CPT/HCPCS: 74000; 71010; 94762; 93005; 85025; 85610; 81001; 36415; 82962; 80053 ×2; 83735; 82553; 84484; 83880; 83690; 82140; 83605; 86140; 87641; 86803; 87340; J0610; J7060; J1940; J7040; J2405; A9270; J1817; J1170; 51702; 93010; 96361; 96374; 96375; 99285-25; J1956; J2060; P9612